=== PATIENT | male | born 1970 | race Caucasian/White ===

== ENCOUNTER 2023-01-09 09:22 | Inpatient (IN) ==
[2023-01-09] MEDS ORDERED: SODIUM CHLORIDE 0.9% 1000ML 1,000 ML IV SCH (09:30)
[2023-01-09] MEDS ORDERED: LACTATED RINGER'S 1,000 ML IV ONE (09:33)
--- NOTE | 2023-01-09 09:46 | Emergency Department Note ---
Impression & Plan DKA, type 2, Gastroenteritis, Dehydration ED Provider Note Provider: Joe Nathan MD DATE OF SERVICE: 01/09/2023 CHIEF COMPLAINT: Nausea vomiting, dehydrated HISTORY OF PRESENT ILLNESS: Patient is a 52-year-old gentleman history of hypertension and type 2 diabetes presenting here via ambulance from his home. Patient is sleepy female evening according to his . Had GI symptom s with nausea and vomiting then. Thursday evidently had several syncopal episodes and was not keeping much down. Seen at [facility] had x-rays as well as some blood work done. Discharged home after IV fluids and some Zofran. Zofran was not helpful. Patient not taking his medications the last day or so. Up all night vomiting. Denies diarrhea. Denies significant Paresh pain. Feels very thirsty by his report. reports when he did syncopized the other day did bump his head and small healing scab on his mid forehead. Patient is on aspirin. Patient without significant injury or pain in the extremities by his report. Feels short of breath. EMS gave him 400 mL of normal saline as well as 4 mg of Zofran prior to arrival. states the patient seems confused this morning and was not making sense. PAST MEDICAL HISTORY: As noted above MEDICATIONS: Reviewed home medications although last day or so has not been taking SOCIAL HISTORY: lives at home, works in parts PHYSICAL EXAM: GENERAL: alert to verbal stimuli resting with eyes closed somewhat tachypnea, answers simple questions without issues but fatigued in appearance Head: normocephalic with a small less than centimeter healing abrasion eyebrow as well as across the nasal bridge without significant crepitus EYES: No injection, discharge or icterus. PERRL NECK: Trachea midline. Supple without significant tenderness ENT: Mucous membranes pink and however quite dry mucous membranes. Nasal bridge with slight abrasion. LUNGS: Airway patent. No retractions. Breath sounds clear but tachypneic HEART: Regular tachycardic rate and rhythm. No chest wall tenderness ABDOMEN: Soft and non-tender, without guarding or rebound. SKIN: Acyanotic, warm, dry, without rashes EXTREMITIES: Without swelling, tenderness or deformity but some decreased capillary refill initially. NEUROLOGICAL: No focal deficits moving extremities. No slurred speech. No facial droop. Not the best historian and fatigued in nature. EK bpm sinus tachycardia. No PVC or PAC. No acute ST segment elevation or depression with a QTc of 494. CONTINUOUS CARDIAC MONITORING: was ordered and showed a heart rate of 100s-110s bpm in sinus tachycardia Patient's laboratory studies and imaging reviewed. Differential includes Infection, dehydration, metabolic abnormality, hypo/hyperglycemia, electrolyte disturbance, anemia, cardiac sources, neurologic, pneumonia, traumatic injury, as well as other pathologies. IMPRESSION/MEDICAL DECISION MAKING: Patient quite fatigued. Tachypneic with elevated blood sugar today in the 400s and not taking his blood sugars recently. Has been on Jardiance. Reviewed the [facility] medical records from [place] from the other day as well as prior PCP note. Blood work there showed evidence of anion gap but a normal creatinine of 0.8. Urine did show some ketones as well as a lot of glucose. No white count at that time. Normal high-sensitivity troponin from the fifth. If he possibly been in euglycemic DKA at that point. Given the fact that it is head then without imaging did complete a CT now given his confusion. With the elevated blood sugars now off of his medicines in particular his Jardiance with the tachypnea question if he is now transition to a more classic DKA state. Given IV fluid resuscitation 3 L. Benign abdomen without significant abdominal ten derness. No significant chest wall tenderness. [id number] BMP shows evidence of elevated potassium of 6.4 with a bicarb of 6, glucose of 428, creatinine 1.1, BUN of 52, and anion gap of 27. CBC returns with leukocytosis I believe more likely reactive PCO2 18 given the gastroenteritis and truly bacterial. VBG with a undetectably with a pH below 7. CT of the head without acute abnormality per radiology. Patient interactive and talking but at times a bit confused. Again fairly benign abdomen and low suspicion for acute intra-abdominal pathology. Doubt a significant bacterial infectious component. Discussed with the hospitalist team for further care at the hospital given his severe DKA. DIAGNOSIS: DKA, gastroenteritis, dehydration, hyperkalemia, confusion DISPOSITION: Hospitalist will evaluate. updated at bedside. Critical Care I have personally spent 36 minutes of critical care time in the direct management of this patient. This includes bedside care, interpretation of diagnostic studies, and testing, discussion with consultants, patient, and family members, and other required patient management activities. These 36 minutes is in excess of all separately billable procedures. Past Med/Surg History Medical History (Updated 01/09/23 @ 12:36 by Joy Hughes PA-C) DM II (diabetes mellitus, type II), controlled HLD (hyperlipidemia) HTN (hypertension) Hypothyroidism Surgical History History of tonsillectomy Family History Other Alzheimer disease Dementia Hypertension Social History Smoking Status: Never smoker Hx Alcohol Use: Yes Alcohol Intake Frequency: 2-4 x/Month Hx Substance Use: No Preferred Language: Sinhala Communication Ability: Effective Jde Developer Required: No Beliefs That Will Affect Care: None Current Living Situation: Spouse Other Information That Helps Us Care for You: No Feels Safe at Home: Yes Safety Concerns: Feels Safe At This Time Assistive Devices: None Allergies Allergies Allergy/AdvReac Type Severity Reaction Status Date / Time bee venom protein (honey bee) Allergy Unknown Bee sting Verified 01/09/23 10:36 allergy Home Meds Home Medications Medication Instructions Recorded Confirmed aspirin 81 mg capsule 81 mg PO DAILY 01/09/23 01/09/23 atenolol 50 mg tablet 50 mg PO DAILY 01/09/23 01/09/23 bismuth [id number] 1 supp MS BID 01/09/23 01/09/23 rectal suppository empagliflozin 25 mg tablet 25 mg PO DAILY 01/09/23 01/09/23 (Jardiance) insulin glargine 100 unit/mL (3 32 unit subcut QAM 01/09/23 01/09/23 mL) subcutaneous pen (Lantus Solostar U-100 Insulin) levothyroxine 125 mcg tablet 125 mcg PO DAILY 01/09/23 01/09/23 losartan 50 mg tablet 50 mg PO DAILY 01/09/23 01/09/23 metformin 1,000 mg tablet 1,000 mg PO BID 01/09/23 01/09/23 ondansetron HCl 4 mg tablet 4 mg PO Q6H PRN Nausea 01/09/23 01/09/23 semaglutide 2 mg/dose (8 mg/3 mL) 2 mg subcut WK 01/09/23 01/09/23 subcutaneous pen injector (Ozempic) simvastatin 40 mg tablet 40 mg PO HS 01/09/23 01/09/23 Results & Data (ED) Vital Signs Vital Signs - 24 hr 01/09/23 09:40 01/09/23 09:38 01/09/23 09:11 Temperature 36.2 C L Temperature Source Oral Pulse Rate 115 H 121 H Pulse Rate [Finger] Respiratory Rate 30 H Respiratory Effort / Characteristics Labored Respiratory Depth Retractive Respiratory Pattern Blood Pressure 127/83 Blood Pressure [Right Arm] Blood Pressure Mean 97 Blood Pressure Mean [Right Arm] Pulse Oximetry 100 100 Oxygen Delivery Method Room Air Room Air Sepsis Recent Fever Within 48 Hours No Sepsis New/Unexplained Change in Mental Status N/A Sepsis Action Taken by Nursing Physician Notified 01/09/23 10:15 01/09/23 11:17 Temperature Temperature Source Pulse Rate Pulse Rate [Finger] 121 H 124 H Respiratory Rate 18 24 Respiratory Effort / Characteristics Non-Labored Respiratory Depth Normal Respiratory Pattern Tachypnea Blood Pressure Blood Pressure [Right Arm] 136/76 121/69 Blood Pressure Mean Blood Pressure Mean [Right Arm] 96 86 Pulse Oximetry 100 100 Oxygen Delivery Method Room Air Room Air Sepsis Recent Fever Within 48 Hours Sepsis New/Unexplained Change in Mental Status Sepsis Action Taken by Nursing Laboratory Data 01/09/23 09:45 01/09/23 09:45 Lab Results 01/09/23 01/09/23 01/09/23 Range/Units 09:30 09:45 09:45 WBC 17.47 H (4.8-10.8) K/ul RBC 5.94 (4.70-6.10) M/uL Hgb 16.3 (14.0-18.0) g/dl POC Hgb (14.0-18.0) g/dl Hct 52.4 H (42.0-52.0) % POC Hct (42-52) % MCV 88.2 (80.0-100.0) fL MCH 27.4 (25.0-34.0) pg MCHC 31.1 L (32.0-36.0) g/dL RDW Std Deviation 40.7 (36.4-46.3) fL RDW Coeff of Tae 12.5 (11.5-14.5) % Plt Count 379 (130-400) K/uL MPV 10.4 (9.4-12.4) fL Immature Gran % (Auto) 0.9 % Neut % (Auto) 88.4 % Lymph % (Auto) 3.5 % [place] % (Auto) 6.9 % Eos % (Auto) 0.0 % Baso % (Auto) 0.3 % Neut # (Auto) 15.44 H (1.40-6.50) K/uL Lymph # (Auto) 0.61 L (1.2-3.4) K/uL [place] # (Auto) 1.20 H (0.11-0.59) K/uL Eos # (Auto) 0.00 (0-0.50) K/uL Baso # (Auto) 0.06 (0-0.2) K/uL Immature Gran # (Auto) 0.16 (0.01-0.20) K/uL ABG pH (7.35-7.45) VBG pH (7.36-7.41) VBG pCO2 (38-50) mmHg VBG pO2 mmHg VBG HCO3 mmol/L VBG O2 Saturation % VBG Base Excess mEq/L POC Sodium (135-144) mmol/L Sodium (136-145) mmol/L POC Potassium (3.3-5.0) mmol/L Potassium (3.5-5.1) mmol/L POC Chloride (101-112) mmol/L Chloride (98-107) mmol/L Carbon Dioxide (21-32) mmol/L POC Total CO2 (24-31) mmol/L Anion Gap (3-11) POC Anion Gap (16-25) mmol/L POC BUN (7-18) mg/dl BUN (6-23) mg/dl Creatinine (0.6-1.4) mg/dl POC Creatinine (0.6-1.3) mg/dl Est Cr Clr Drug Dosing ml/min Est GFR ( Amer) ml/min Est GFR (Non-Af Amer) ml/min BUN/Creatinine Ratio (10-20) Glucose (70-99(Fasting)) mg/dl POC Glucose (70-99) mg/dl POC Glucose (other) (70-99) mg/dl Estimat Average Glucose mg/dl Hemoglobin A1c (4.5-5.6) % Lactate 4.0 H* (0.4-2.0) mmol/L Calcium (8.6-10.3) mg/dl POC Ioniz Calcium Ting (1.12-1.32) mmol/l Magnesium (1.7-2.4) mg/dl Total Bilirubin (0.2-1.0) mg/dl AST (13-39) U/L ALT (7-52) U/L Alkaline Phosphatase (34-104) U/L Troponin I High Sens (0-20) pg/ml Total Protein (6.0-8.3) gm/dl Albumin (3.4-5.0) gm/dl Globulin (2.5-4.0) gm/dl Albumin/Globulin Ratio (0.9-2) Procalcitonin (0-0.5) ng/ml TSH (0.300-4.500) uIu/ml Free T4 (0.61-1.60) ng/dl Urine Color Urine Appearance (Clear) Urine pH (4.5-7.5) Ur Specific [place] (1.000-1.030) Urine Protein (Negative) Urine Glucose (UA) (Negative) Urine Ketones (Negative) Urine Blood (Negative) Urine Nitrite (Negative) Urine Bilirubin (Negative) Urine Urobilinogen (Negative) Ur Leukocyte Esterase (Negative) Urine WBC (Auto) (0-5) /hpf Urine RBC (Auto) (0-4) /hpf U Hyaline Cast (Auto) (0-5) /lpf U Epithel Cells (Auto) (0-5) /lpf Urine Bacteria (Auto) (Negative) SARS-CoV-2, RNA, NAAT NEGATIVE (NEGATIVE) 01/09/23 01/09/23 01/09/23 Range/Units 09:45 09:45 09:52 WBC (4.8-10.8) K/ul RBC (4.70-6.10) M/uL Hgb (14.0-18.0) g/dl POC Hgb 17.7 (14.0-18.0) g/dl Hct (42.0-52.0) % POC Hct 52 (42-52) % MCV (80.0-100.0) fL MCH (25.0-34.0) pg MCHC (32.0-36.0) g/dL RDW Std Deviation (36.4-46.3) fL RDW Coeff of Tae (11.5-14.5) % Plt Count (130-400) K/uL MPV (9.4-12.4) fL Immature Gran % (Auto) % Neut % (Auto) % Lymph % (Auto) % [place] % (Auto) % Eos % (Auto) % Baso % (Auto) % Neut # (Auto) (1.40-6.50) K/uL Lymph # (Auto) (1.2-3.4) K/uL [place] # (Auto) (0.11-0.59) K/uL Eos # (Auto) (0-0.50) K/uL Baso # (Auto) (0-0.2) K/uL Immature Gran # (Auto) (0.01-0.20) K/uL ABG pH (7.35-7.45) VBG pH (7.36-7.41) VBG pCO2 (38-50) mmHg VBG pO2 mmHg VBG HCO3 mmol/L VBG O2 Saturation % VBG Base Excess mEq/L POC Sodium 136 (135-144) mmol/L Sodium (136-145) mmol/L POC Potassium 6.4 H* (3.3-5.0) mmol/L Potassium (3.5-5.1) mmol/L POC Chloride 110 (101-112) mmol/L Chloride (98-107) mmol/L Carbon Dioxide (21-32) mmol/L POC Total CO2 6 L* (24-31) mmol/L Anion Gap (3-11) POC Anion Gap 27.0 H (16-25) mmol/L POC BUN 52 H (7-18) mg/dl BUN (6-23) mg/dl Creatinine (0.6-1.4) mg/dl POC Creatinine 1.1 (0.6-1.3) mg/dl Est Cr Clr Drug Dosing ml/min Est GFR ( Amer) ml/min Est GFR (Non-Af Amer) ml/min BUN/Creatinine Ratio (10-20) Glucose (70-99(Fasting)) mg/dl POC Glucose (70-99) mg/dl POC Glucose (other) 428 H* (70-99) mg/dl Estimat Average Glucose 180 mg/dl Hemoglobin A1c 7.9 H (4.5-5.6) % Lactate (0.4-2.0) mmol/L Calcium (8.6-10.3) mg/dl POC Ioniz Calcium Ting 1.22 (1.12-1.32) mmol/l Magnesium (1.7-2.4) mg/dl Total Bilirubin (0.2-1.0) mg/dl AST (13-39) U/L ALT (7-52) U/L Alkaline Phosphatase (34-104) U/L Troponin I High Sens (0-20) pg/ml Total Protein (6.0-8.3) gm/dl Albumin (3.4-5.0) gm/dl Globulin (2.5-4.0) gm/dl Albumin/Globulin Ratio (0.9-2) Procalcitonin (0-0.5) ng/ml TSH 0.157 L (0.300-4.500) uIu/ml Free T4 1.14 (0.61-1.60) ng/dl Urine Color Urine Appearance (Clear) Urine pH (4.5-7.5) Ur Specific [place] (1.000-1.030) Urine Protein (Negative) Urine Glucose (UA) (Negative) Urine Ketones (Negative) Urine Blood (Negative) Urine Nitrite (Negative) Urine Bilirubin (Negative) Urine Urobilinogen (Negative) Ur Leukocyte Esterase (Negative) Urine WBC (Auto) (0-5) /hpf Urine RBC (Auto) (0-4) /hpf U Hyaline Cast (Auto) (0-5) /lpf U Epithel Cells (Auto) (0-5) /lpf Urine Bacteria (Auto) (Negative) SARS-CoV-2, RNA, NAAT (NEGATIVE) 01/09/23 01/09/23 01/09/23 Range/Units 09:59 10:00 11:29 WBC (4.8-10.8) K/ul RBC (4.70-6.10) M/uL Hgb (14.0-18.0) g/dl POC Hgb (14.0-18.0) g/dl Hct (42.0-52.0) % POC Hct (42-52) % MCV (80.0-100.0) fL MCH (25.0-34.0) pg MCHC (32.0-36.0) g/dL RDW Std Deviation (36.4-46.3) fL RDW Coeff of Tae (11.5-14.5) % Plt Count (130-400) K/uL MPV (9.4-12.4) fL Immature Gran % (Auto) % Neut % (Auto) % Lymph % (Auto) % [place] % (Auto) % Eos % (Auto) % Baso % (Auto) % Neut # (Auto) (1.40-6.50) K/uL Lymph # (Auto) (1.2-3.4) K/uL [place] # (Auto) (0.11-0.59) K/uL Eos # (Auto) (0-0.50) K/uL Baso # (Auto) (0-0.2) K/uL Immature Gran # (Auto) (0.01-0.20) K/uL ABG pH < 7.00 L* (7.35-7.45) VBG pH < 7.00 L (7.36-7.41) VBG pCO2 18 L (38-50) mmHg VBG pO2 47 mmHg VBG HCO3 3 mmol/L VBG O2 Saturation 76.8 % VBG Base Excess -28.5 mEq/L POC Sodium (135-144) mmol/L Sodium 137 (136-145) mmol/L POC Potassium (3.3-5.0) mmol/L Potassium 6.1 H* (3.5-5.1) mmol/L POC Chloride (101-112) mmol/L Chloride 103 (98-107) mmol/L Carbon Dioxide 3 L* (21-32) mmol/L POC Total CO2 (24-31) mmol/L Anion Gap 31 H (3-11) POC Anion Gap (16-25) mmol/L POC BUN (7-18) mg/dl BUN 39 H (6-23) mg/dl Creatinine 1.45 H (0.6-1.4) mg/dl POC Creatinine (0.6-1.3) mg/dl Est Cr Clr Drug Dosing 58.2 ml/min Est GFR ( Amer) 62.8 ml/min Est GFR (Non-Af Amer) 54.2 ml/min BUN/Creatinine Ratio 26.9 H (10-20) Glucose 431 H* (70-99(Fasting)) mg/dl POC Glucose (70-99) mg/dl POC Glucose (other) (70-99) mg/dl Estimat Average Glucose mg/dl Hemoglobin A1c (4.5-5.6) % Lactate (0.4-2.0) mmol/L Calcium 8.9 (8.6-10.3) mg/dl POC Ioniz Calcium Ting (1.12-1.32) mmol/l Magnesium 2.8 H (1.7-2.4) mg/dl Total Bilirubin 0.6 (0.2-1.0) mg/dl AST 17 (13-39) U/L ALT 16 (7-52) U/L Alkaline Phosphatase 60 (34-104) U/L Troponin I High Sens 13.4 (0-20) pg/ml Total Protein 7.3 (6.0-8.3) gm/dl Albumin 4.5 (3.4-5.0) gm/dl Globulin 2.8 (2.5-4.0) gm/dl Albumin/Globulin Ratio 1.6 (0.9-2) Procalcitonin (0-0.5) ng/ml TSH (0.300-4.500) uIu/ml Free T4 (0.61-1.60) ng/dl Urine Color Urine Appearance (Clear) Urine pH (4.5-7.5) Ur Specific [place] (1.000-1.030) Urine Protein (Negative) Urine Glucose (UA) (Negative) Urine Ketones (Negative) Urine Blood (Negative) Urine Nitrite (Negative) Urine Bilirubin (Negative) Urine Urobilinogen (Negative) Ur Leukocyte Esterase (Negative) Urine WBC (Auto) (0-5) /hpf Urine RBC (Auto) (0-4) /hpf U Hyaline Cast (Auto) (0-5) /lpf U Epithel Cells (Auto) (0-5) /lpf Urine Bacteria (Auto) (Negative) SARS-CoV-2, RNA, NAAT (NEGATIVE) 01/09/23 01/09/23 01/09/23 Range/Units 11:43 11:54 11:54 WBC (4.8-10.8) K/ul RBC (4.70-6.10) M/uL Hgb (14.0-18.0) g/dl POC Hgb (14.0-18.0) g/dl Hct (42.0-52.0) % POC Hct (42-52) % MCV (80.0-100.0) fL MCH (25.0-34.0) pg MCHC (32.0-36.0) g/dL RDW Std Deviation (36.4-46.3) fL RDW Coeff of Tae (11.5-14.5) % Plt Count (130-400) K/uL MPV (9.4-12.4) fL Immature Gran % (Auto) % Neut % (Auto) % Lymph % (Auto) % [place] % (Auto) % Eos % (Auto) % Baso % (Auto) % Neut # (Auto) (1.40-6.50) K/uL Lymph # (Auto) (1.2-3.4) K/uL [place] # (Auto) (0.11-0.59) K/uL Eos # (Auto) (0-0.50) K/uL Baso # (Auto) (0-0.2) K/uL Immature Gran # (Auto) (0.01-0.20) K/uL ABG pH (7.35-7.45) VBG pH (7.36-7.41) VBG pCO2 (38-50) mmHg VBG pO2 mmHg VBG HCO3 mmol/L VBG O2 Saturation % VBG Base Excess mEq/L POC Sodium (135-144) mmol/L Sodium (136-145) mmol/L POC Potassium (3.3-5.0) mmol/L Potassium (3.5-5.1) mmol/L POC Chloride (101-112) mmol/L Chloride (98-107) mmol/L Carbon Dioxide (21-32) mmol/L POC Total CO2 (24-31) mmol/L Anion Gap (3-11) POC Anion Gap (16-25) mmol/L POC BUN (7-18) mg/dl BUN (6-23) mg/dl Creatinine (0.6-1.4) mg/dl POC Creatinine (0.6-1.3) mg/dl Est Cr Clr Drug Dosing ml/min Est GFR ( Amer) ml/min Est GFR (Non-Af Amer) ml/min BUN/Creatinine Ratio (10-20) Glucose (70-99(Fasting)) mg/dl POC Glucose 310 H* (70-99) mg/dl POC Glucose (other) (70-99) mg/dl Estimat Average Glucose mg/dl Hemoglobin A1c (4.5-5.6) % Lactate 2.8 H* (0.4-2.0) mmol/L Calcium (8.6-10.3) mg/dl POC Ioniz Calcium Ting (1.12-1.32) mmol/l Magnesium (1.7-2.4) mg/dl Total Bilirubin (0.2-1.0) mg/dl AST (13-39) U/L ALT (7-52) U/L Alkaline Phosphatase (34-104) U/L Troponin I High Sens (0-20) pg/ml Total Protein (6.0-8.3) gm/dl Albumin (3.4-5.0) gm/dl Globulin (2.5-4.0) gm/dl Albumin/Globulin Ratio (0.9-2) Procalcitonin 0.45 (0-0.5) ng/ml TSH (0.300-4.500) uIu/ml Free T4 (0.61-1.60) ng/dl Urine Color Urine Appearance (Clear) Urine pH (4.5-7.5) Ur Specific [place] (1.000-1.030) Urine Protein (Negative) Urine Glucose (UA) (Negative) Urine Ketones (Negative) Urine Blood (Negative) Urine Nitrite (Negative) Urine Bilirubin (Negative) Urine Urobilinogen (Negative) Ur Leukocyte Esterase (Negative) Urine WBC (Auto) (0-5) /hpf Urine RBC (Auto) (0-4) /hpf U Hyaline Cast (Auto) (0-5) /lpf U Epithel Cells (Auto) (0-5) /lpf Urine Bacteria (Auto) (Negative) SARS-CoV-2, RNA, NAAT (NEGATIVE) 01/09/23 Range/Units 12:03 WBC (4.8-10.8) K/ul RBC (4.70-6.10) M/uL Hgb (14.0-18.0) g/dl POC Hgb (14.0-18.0) g/dl Hct (42.0-52.0) % POC Hct (42-52) % MCV (80.0-100.0) fL MCH (25.0-34.0) pg MCHC (32.0-36.0) g/dL RDW Std Deviation (36.4-46.3) fL RDW Coeff of Tae (11.5-14.5) % Plt Count (130-400) K/uL MPV (9.4-12.4) fL Immature Gran % (Auto) % Neut % (Auto) % Lymph % (Auto) % [place] % (Auto) % Eos % (Auto) % Baso % (Auto) % Neut # (Auto) (1.40-6.50) K/uL Lymph # (Auto) (1.2-3.4) K/uL [place] # (Auto) (0.11-0.59) K/uL Eos # (Auto) (0-0.50) K/uL Baso # (Auto) (0-0.2) K/uL Immature Gran # (Auto) (0.01-0.20) K/uL ABG pH (7.35-7.45) VBG pH (7.36-7.41) VBG pCO2 (38-50) mmHg VBG pO2 mmHg VBG HCO3 mmol/L VBG O2 Saturation % VBG Base Excess mEq/L POC Sodium (135-144) mmol/L Sodium (136-145) mmol/L POC Potassium (3.3-5.0) mmol/L Potassium (3.5-5.1) mmol/L POC Chloride (101-112) mmol/L Chloride (98-107) mmol/L Carbon Dioxide (21-32) mmol/L POC Total CO2 (24-31) mmol/L Anion Gap (3-11) POC Anion Gap (16-25) mmol/L POC BUN (7-18) mg/dl BUN (6-23) mg/dl Creatinine (0.6-1.4) mg/dl POC Creatinine (0.6-1.3) mg/dl Est Cr Clr Drug Dosing ml/min Est GFR ( Amer) ml/min Est GFR (Non-Af Amer) ml/min BUN/Creatinine Ratio (10-20) Glucose (70-99(Fasting)) mg/dl POC Glucose (70-99) mg/dl POC Glucose (other) (70-99) mg/dl Estimat Average Glucose mg/dl Hemoglobin A1c (4.5-5.6) % Lactate (0.4-2.0) mmol/L Calcium (8.6-10.3) mg/dl POC Ioniz Calcium Ting (1.12-1.32) mmol/l Magnesium (1.7-2.4) mg/dl Total Bilirubin (0.2-1.0) mg/dl AST (13-39) U/L ALT (7-52) U/L Alkaline Phosphatase (34-104) U/L Troponin I High Sens (0-20) pg/ml Total Protein (6.0-8.3) gm/dl Albumin (3.4-5.0) gm/dl Globulin (2.5-4.0) gm/dl Albumin/Globulin Ratio (0.9-2) Procalcitonin (0-0.5) ng/ml TSH (0.300-4.500) uIu/ml Free T4 (0.61-1.60) ng/dl Urine Color Yellow Urine Appearance Clear (Clear) Urine pH 5.0 (4.5-7.5) Ur Specific [place] 1.022 (1.000-1.030) Urine Protein 1+ H (Negative) Urine Glucose (UA) 3+ H (Negative) Urine Ketones 4+ H (Negative) Urine Blood 1+ H (Negative) Urine Nitrite Negative (Negative) Urine Bilirubin Negative (Negative) Urine Urobilinogen Negative (Negative) Ur Leukocyte Esterase Negative (Negative) Urine WBC (Auto) 1-5 (0-5) /hpf Urine RBC (Auto) 0-4 (0-4) /hpf U Hyaline Cast (Auto) 1-5 (0-5) /lpf U Epithel Cells (Auto) 5-10 H (0-5) /lpf Urine Bacteria (Auto) Negative (Negative) SARS-CoV-2, RNA, NAAT (NEGATIVE) Administered Medications Insulin Human Regular 250 (units/ Sodium Chloride) 250 mls @ 7.1 mls/hr IV .Q24H [facility]; Protocol Stop: 02/08/23 10:14 Last Admin: 01/09/23 10:43 Dose: 7.1 units/hr, 7.1 mls/hr Documented By: BRAD Co-signed By: ANY Sodium Chloride (1/2 Nss) 1,000 mls @ 250 mls/hr IV .Q4H NIYA Stop: 02/08/23 13:29 Last Admin: 01/09/23 13:58 Dose: Not Given Documented By: FRANCISCO JAVIER Sodium Chloride (Nss 1000ml) 2,000 mls @ 999 mls/hr IV .Q2H1M ONE Stop: 01/09/23 15:49 Last Admin: 01/09/23 14:07 Dose: 999 mls/hr Documented By: GABO Insulin Aspart (Insulin Aspart Per Unit Charge) 0 units SC ACHS NIYA Stop: 02/08/23 11:29 Last Admin: 01/09/23 12:17 Dose: Not Given Documented By: MODESTO Miscellaneous (Pending D5 1/2ns+20meq Kcl Ivf) 1 each N/A Q2H NIYA Stop: 02/08/23 12:14 Last Admin: 01/09/23 13:58 Dose: Not Given Documented By: FRANCISCO JAVIER Miscellaneous (Pending 1/2nss+20meq Kcl Ivf) 1 each N/A Q2H NIYA Stop: 02/08/23 12:14 Last Admin: 01/09/23 13:58 Dose: Not Given Documented By: FRANCISCO JAVIER Discontinued Medications Sodium Chloride (Nss 1000ml) 1,000 mls @ 999 mls/hr IV .Q1H1M NIYA Stop: 01/09/23 10:30 Last Infusion: 01/09/23 10:51 Dose: 0 mls/hr Documented By: Admin: 01/09/23 09:48 Dose: 999 mls/hr Documented By: BRAD Lactated Ringer's (Lr) 1,000 mls @ 999 mls/hr IV .Q1H1M ONE Stop: 01/09/23 10:33 Last Infusion: 01/09/23 10:51 Dose: 0 mls/hr Documented By: Admin: 01/09/23 09:48 Dose: 999 mls/hr Documented By: BRAD Sodium Chloride (Nss 1000ml) 1,000 mls @ 999 mls/hr IV .Q1H1M ONE Stop: 01/09/23 11:07 Last Infusion: 01/09/23 11:48 Dose: 0 mls/hr Documented By: Admin: 01/09/23 10:47 Dose: 999 mls/hr Documented By: BRAD Ceftriaxone Sodium 1,000 mg/ (Dextrose) 50 mls @ 100 mls/hr IV NOW STA; Protocol Stop: 01/09/23 12:13 Last Infusion: 01/09/23 12:29 Dose: 0 mls/hr Documented By: Admin: 01/09/23 11:58 Dose: 100 mls/hr Documented By: MODESTO Vancomycin HCl 1,500 mg/ (Sodium Chloride) 530 mls @ 200 mls/hr IV NOW ONE; Protocol Stop: 01/09/23 14:38 Last Admin: 01/09/23 12:32 Dose: 200 mls/hr Documented By: MODESTO Parenteral Electrolytes (Plasma-Lyte A Ph 7.4) 1,000 mls @ 150 mls/hr IV .Q6H40M NIYA Stop: 02/08/23 12:14 Last Admin: 01/09/23 12:56 Dose: Not Given Documented By: MODESTO Imaging Data Radiologist's Impression: Chest X-Ray 01/09/23 09:26 XR chest 1V portable CLINICAL HISTORY: Weakness. COMPARISON STUDY: No previous studies for comparison. FINDINGS: Lung volumes are normal. There is no consolidation to suggest pn eumonia. There is a possible 1.1 cm right lower lung nodule. There is no pneumothorax or pleural effusion. Cardiac size is normal. Mediastinal contours are normal. There is no evidence for pulmonary edema. IMPRESSION: 1. No acute cardiopulmonary findings. 2. Possible 1.1 cm right lower lung nodule. Nonemergent chest CT is recommended. ACT 112: Positive. There are findings on this exam that require communication between the performing entity and the patient following Patient Test Result Information Act ([place] Act 112) guidelines. Electronically signed by: Ariel Carrington M.D. 01/09/2023 10:[address] 01/09/23 09:[address] DOSE: 537.48 mGy.cm HISTORY: fall, n/v TECHNIQUE: Multiaxial CT images of the head were performed without the use of intravenous contrast. Automated exposure control was utilized for this study. A dose lowering technique was utilized adhering to the principles of ALARA. Comparison: None. Findings: The paranasal sinuses and mastoid air cells are clear. The calvarium and skull base are intact. The ventricles and sulci are within normal limits. There is no mass, hematoma, midline shift, or acute infarct. Small metallic screw/implant within the left posterior frontal bone. Impression: No acute intracranial abnormality. ACT 112: Negative or not required by law. Electronically signed by: Johnny Powell M.D. 01/09/2023 10:44 AM Discharge Plan Visit Data Chief Complaint: Hyperglycemia ED Provider: Joe Nathan Discharge Problem: DKA, type 2, Gastroenteritis, Dehydration Patient Disposition: Admitted As Inpatient Discharge Instructions Interventions: ED Discharge Assessment Last Done: 01/09/23 13:21 DKA, type 2 Qualifiers: Diabetes mellitus complication detail: without coma Qualified Code(s): E11.10 - Type 2 diabetes mellitus with ketoacidosis without coma
[2023-01-09 10:05] LABS: iSTAT Creatinine 1.1 mg/dl (0.6-1.3); iSTAT Hemoglobin 17.7 g/dl (14.0-18.0); iSTAT Ionized Calcium 1.22 mmol/l (1.12-1.32); iSTAT Potassium 6.4 mmol/L (3.3-5.0)
[2023-01-09] MEDS ORDERED: CARBOHYDRATES FOR HYPOGLYCEMIA PO PRN (10:05)
[2023-01-09] MEDS ORDERED: GLUCAGON FOR INJ 1 MG VIAL SQ PRN (10:05)
[2023-01-09] MEDS ORDERED: GLUCOSE 10 TAB/TUBE PO PRN (10:05)
[2023-01-09] MEDS ORDERED: DEXTROSE 50% 50 ML SYRINGE IV PRN (10:05)
[2023-01-09] MEDS ORDERED: DKA GOAL RANGE 150-250 mg/dl ONE ×2 (10:05→12:11)
[2023-01-09] MEDS ORDERED: GLUCOSE 40% GEL 15 GM TUBE PO PRN (10:05)
[2023-01-09] MEDS ORDERED: SODIUM CHLORIDE 0.9% 1000ML 1,000 ML IV ONE (10:07)
[2023-01-09] MEDS ORDERED: INSULIN REGULAR 250 UNITS in SODIUM CHLORIDE 0.9% 247.5 ML IV SCH ×2 (10:15→12:15)
--- NOTE | 2023-01-09 10:16 | XRay Report ---
XR chest 1V portable CLINICAL HISTORY: Weakness. COMPARISON STUDY: No previous studies for comparison. FINDINGS: Lung volumes are normal. There is no consolidation to suggest pneumonia. There is a possibl e 1.1 cm right lower lung nodule. There is no pneumothorax or pleural effusion. Cardiac size is sahra l. Mediastinal contours are normal. There is no evidence for pulmonary edema. IMPRESSION: 1. No acute cardiopulmonary findings. 2. Possible 1.1 cm right lower lung nodule. Nonemergent chest CT is recommended. ACT 112: Positive. There are findings on this exam that require communication between the performing entity and the patient following Patient Test Result Information Act ([place] Act 112) guidelines. Electronically signed by: Ariel Carrington M.D. 01/09/2023 10:14 AM
[2023-01-09 10:24] LABS: Basophils # (auto) 0.06 K/uL (0-0.2); Basophils % (auto) 0.3 %; Hematocrit (blood only) 52.4 % (42.0-52.0); Hemoglobin 16.3 g/dl (14.0-18.0); Immature Granulocytes # (auto) 0.16 K/uL (0.01-0.20); Immature Granulocytes % (auto) 0.9 %; Lymphocytes # (auto) 0.61 K/uL (1.2-3.4); Lymphocytes % (auto) 3.5 %; Mean Corpuscular Hemoglobin 27.4 pg (25.0-34.0); Mean Corpuscular Hgb Conc 31.1 g/dL (32.0-36.0); Mean Corpuscular Volume 88.2 fL (80.0-100.0); Mean Platelet Volume 10.4 fL (9.4-12.4); Monocytes % (auto) 6.9 %; Neutrophils # (auto) 15.44 K/uL (1.40-6.50); Neutrophils % (auto) 88.4 %; Platelet Count 379 K/uL (130-400); RDW Coefficient of Variation 12.5 % (11.5-14.5); RDW Standard Deviation 40.7 fL (36.4-46.3); Red Blood Count 5.94 M/uL (4.70-6.10); White Blood Count 17.47 K/ul (4.8-10.8)
[2023-01-09 10:28] LABS: Base Excess VBG -28.5 mEq/L; HCO3 VBG 3 mmol/L; Oxygen Saturation VBG 76.8 %; PCO2 VBG 18 mmHg (38-50); PO2 VBG 47 mmHg; pH VBG < 7.00 (7.36-7.41)
[2023-01-09 10:39] LABS: Thyroid Stimulating Hormone 0.157 uIu/ml (0.300-4.500)
--- NOTE | 2023-01-09 10:45 | CT Scan Report ---
HEAD CT NONCONTRAST CT DOSE: 537.48 mGy.cm HISTORY: fall, n/v TECHNIQUE: Multiaxial CT images of the head were performed without the use of intravenous contrast. A utomated exposure control was utilized for this study. A dose lowering technique was utilized adheri ng to the principles of ALARA. Comparison: None. Findings: The paranasal sinuses and mastoid air cells are clear. The calvarium and skull base are int act. The ventricles and sulci are within normal limits. There is no mass, hematoma, midline shift, or acute infarct. Small metallic screw/implant within the left posterior frontal bone. Impression: No acute intracranial abnormality. ACT 112: Negative or not required by law. Electronically signed by: Johnny Powell M.D. 01/09/2023 10:44 AM
--- NOTE | 2023-01-09 11:08 | History & Physical Report ---
Date of Service January 09, 2023 Assessment & Plan (1) DKA, type 2: (2) Metabolic acidosis: (3) Intractable nausea and vomiting: (4) SIRS (systemic inflammatory response syndrome): (5) HTN (hypertension): (6) Hypothyroidism: (7) HLD (hyperlipidemia): Plan This is a 52yo M with a PMH of DM II, hypothyroidism, HTN and other medical problems listed below who presents with nausea, vomiting and syncopal episodes at home over the past 3 days and was found to have DKA and metabolic acidosis. DKA Metabolic acidosis N/V x 3 days, has not taken insulin since Thursday since feeling poorly. Educated on importance of continuing insulin (at reduced amt, call PCP) even when PO intake is decreased Confusion noted by starting yesterday but patient still alert on exam, answering questions appropriately ABG pH <7.00, bicarb 3 on BMP, anion gap 31, glucose 431 Received 3 L fluid bolus in ED, transitioning to 1/2 NSS @ 250 ml/hr given that initial sodium corrects to 142 BMP, VBG pH, lytes Q4H, transitional fluids ordered per DKA protocol Patient to be managed in ICU for now given severe metabolic acidosis. Case discussed with Dr. Aguillon SIRS criteria HR 120s, RR: 30, WBC 17, lactate 4 -> 2.8 improving with fluids, procal pending No clear infectious source, likely reactive in setting of DKA but blood cultures obtained, given empiric dose of Rocephin and Vanco given recent ED visit DEMOND Cr 1.45 today in setting of DKA, dehydration. Baseline Cr per Epic ~ 0.8. Avoid nephrotoxic agents when able, continue IV hydration Hypertension Continue atenolol with hold parameters Hypothyroidism Continue levothyroxine Hyperlipidemia Continue statin DVT Ppx: SQ heparin given DEMOND Code status: FULL PCP: Rajat Dispo: Admitted to ICU Patient seen in collaboration with Dr. Cisneros. Please see addendum. I spent a total of 85 minutes coordinating, documenting, and providing care for this patient excluding time spent in the performance of separately billed services. History of Present Illness Chief Complaint: N/V, DKA Primary Care Provider: Antonino Earl MD This is a 52yo M with a PMH of DM II, hypothyroidism, HTN and other medical problems listed below who presents with nausea, vomiting and syncopal episodes at home over the past 3 days. Started to vomit Thursday evening and continued to feel ill into Thursday when he felt lightheaded and had a syncopal episode after urinating and fell, landing on his face and left shoulder. Later that day he fell against the dresser. Went to [facility] ER for evaluation which was felt to be vasovagal in setting of dehydration. Lab work at [facility] showing hyperglycemia and anion gap of 25 at that time. Received antiemetics and fluids and was discharged home. Nausea and vomiting recurred yesterday and could not keep anything down despite taking Zofran. Denies any fever, chills, abdominal pain or diarrhea. Chest wall painful from multiple bouts of emesis. No headache, urinary issues, melena or hematochezia. Had a normal bowel movement 3 days ago. No recent known illness. Last took insulin and Ozempic this past Thursday. Allergies Allergy/AdvReac Type Severity Reaction Status Date / Time bee venom protein (honey bee) Allergy Unknown Bee sting Verified 01/09/23 10:36 allergy Home Medications Medication Instructions Recorded Confirmed Type aspirin 81 mg capsule 81 mg PO DAILY 01/09/23 01/09/23 History atenolol 50 mg tablet 50 mg PO DAILY 01/09/23 01/09/23 History bismuth [id number]-[id number]-KoWy-resor 1 supp AR BID 01/09/23 01/09/23 History rectal suppository empagliflozin 25 mg tablet 25 mg PO DAILY 01/09/23 01/09/23 History (Jardiance) insulin glargine 100 unit/mL (3 32 unit subcut QAM 01/09/23 01/09/23 History mL) subcutaneous pen (Lantus Solostar U-100 Insulin) levothyroxine 125 mcg tablet 125 mcg PO DAILY 01/09/23 01/09/23 History losartan 50 mg tablet 50 mg PO DAILY 01/09/23 01/09/23 History metformin 1,000 mg tablet 1,000 mg PO BID 01/09/23 01/09/23 History ondansetron HCl 4 mg tablet 4 mg PO Q6H PRN Nausea 01/09/23 01/09/23 History semaglutide 2 mg/dose (8 mg/3 mL) 2 mg subcut WK 01/09/23 01/09/23 History subcutaneous pen injector (Ozempic) simvastatin 40 mg tablet 40 mg PO HS 01/09/23 01/09/23 History Past Med/Surg History Medical History (Updated 01/09/23 @ 12:36 by Joy Hughes PA-C) DM II (diabetes mellitus, type II), controlled HLD (hyperlipidemia) HTN (hypertension) Hypothyroidism Surgical History History of tonsillectomy Family History Other Alzheimer disease Dementia Hypertension Social History Smoking Status: Never smoker Hx Alcohol Use: Yes Alcohol Intake Frequency: 2-4 x/Month Feels Safe at Home: Yes Review of Systems Review of Systems: At least ten systems reviewed and negative except as noted in the HPI. Physical Exam Physical Exam: Please see Dr. Cisneros's addendum for physical exam. Results & Data Results & Data Vital Signs (Past 12 Hours) Vital Signs Temp Pulse Pulse Resp BP BP Pulse Ox 01/09/23 10:15 121 H 18 136/76 100 01/09/23 09:11 36.2 C L 121 H 30 H 127/83 100 01/09/23 09:38 115 H 01/09/23 09:40 100 O2 Del Method 01/09/23 10:15 Room Air 01/09/23 09:11 Room Air 01/09/23 09:38 01/09/23 09:40 Room Air Laboratory Results Short CBC 01/09/23 Range/Units 09:45 WBC 17.47 H (4.8-10.8) K/ul Hgb 16.3 (14.0-18.0) g/dl Hct 52.4 H (42.0-52.0) % Plt Count 379 (130-400) K/uL BMP 01/09/23 10:00 Sodium 137 Potassium 6.1 H* Chloride 103 Carbon Dioxide 3 L* BUN 39 H Creatinine 1.45 H Glucose 431 H* Calcium 8.9 Liver Function 01/09/23 Range/Units 10:00 Total Bilirubin 0.6 (0.2-1.0) mg/dl AST 17 (13-39) U/L ALT 16 (7-52) U/L Alkaline Phosphatase 60 (34-104) U/L Albumin 4.5 (3.4-5.0) gm/dl Diagnostic Findings Chest X-Ray 01/09/23 09:26 XR chest 1V portable CLINICAL HISTORY: Weakness. COMPARISON STUDY: No previous studies for comparison. FINDINGS: Lung volumes are normal. There is no consolidation to suggest pneumonia. There is a possible 1.1 cm right lower lung nodule. There is no pneumothorax or pleural effusion. Cardiac size is normal. Mediastinal contours are normal. There is no evidence for pulmonary edema. IMPRESSION: 1. No acute cardiopulmonary findings. 2. Possible 1.1 cm right lower lung nodule. Nonemergent chest CT is recommended. ACT 112: Positive. There are findings on this exam that require communication between the performing entity and the patient following Patient Test Result Information Act ([place] Act 112) guidelines. Electronically signed by: Ariel Carrington M.D. 01/09/2023 10:[address] 01/09/23 09:[address] DOSE: 537.48 mGy.cm HISTORY: fall, n/v TECHNIQUE: Multiaxial CT images of the head were performed without the use of intravenous contrast. Automated exposure control was utilized for this study. A dose lowering technique was utilized adhering to the principles of ALARA. Comparison: None. Findings: The paranasal sinuses and mastoid air cells are clear. The calvarium and skull base are intact. The ventricles and sulci are within normal limits. There is no mass, hematoma, midline shift, or acute infarct. Small metallic screw/implant within the left posterior frontal bone. Impression: No acute intracranial abnormality. ACT 112: Negative or not required by law. Electronically signed by: Johnny Powell M.D. 01/09/2023 10:44 AM Supervising Physician Co-Signing Physician Notes Date of Service: January 09, 2023 History and physical exam performed by ca. History notable for 52-year-old man with hypertension and diabetes on insulin at home who presents with intractable nausea and vomiting for the past 4 days and confusion Reported that started having nausea and vomiting 4 days ago associated with 2 syncopal episode, 1 in the bathroom and 1 in the bedroom. Morning bathroom occurred while trying to urinate he had hit his head. Was evaluated at [facility] for that and noted to have syncopal episode thought to be vasovagal from his intractable nausea and vomiting. Was able to be hydrated and discharged on antiemetics. Patient reports vomiting resumed again yesterday. Reported this multiple episodes of nonbloody nonbilious vomiting. Denied abdominal pain, diarrhea, cough, fevers or chills. Reports only sore throat associated with the vomiting No known sick contacts. Reports that he had not taken his insulin for the past 4 days since he has not been able to keep anything down. On exam, General: Ill appearing, bruise on face Eyes: PERRL, conjunctivae normal, not pale, anicteric sclerae, EOM intact bilaterally ENMT: External ear and nose normal, dry oral mucosa Respiratory: Tachypnea, lungs clear to auscultation, no crackles and no wheezes Cardiovascular: Tachycardic, normal rhythm S1 S2 Gastrointestinal (Abdomen): Abdomen is not distended, soft, non-tender to palpation, no guarding, no palpable hepatosplenomegaly, normal bowel sounds Musculoskeletal: No pedal edema Genitourinary: No CVA tenderness Neurologic: Alert and oriented x 3, No focal weakness, sensation grossly intact Labs notable for WBC of 17,000, venous pH of less than 7, venous PCO2 of 18, potassium of 6.1, bicarb of 3, anion gap of 31, BUN of 39, creatinine of 1.45, blood glucose of 431, lactate of 4 CT head did not show any acute abnormalities Chest x-ray did not show any acute abnormalities. Diabetic ketoacidosis Lactic acidosis Acute kidney injury. Intractable nausea and vomiting. DKA likely in the setting of intractable nausea, vomiting and has been off insulin for some days. Continue insulin drip started in the ER Continue IV fluids per DKA protocol Repeat ABG noted pH of less than 7 Keep n.p.o. Admit to ICU. ICU physician notified. We will check BMP and VBG every 4 hours for now Patient meets criteria for SIRS, hence sepsis is possible Though no obvious source at this time based on history, SIRS could also be due to DKA and dehydration in this case. Got 3L IVF bolus Will give one dose of broad spectrum antibiotics, monitor and follow up outstanding infectious workup (blood cultures. UA/cx) Lactate improving with fluids Other plans as detailed by Joy Hughes PA-C (1) DKA, type 2 Diabetes mellitus complication detail: without coma Qualified Code(s): E11.10 - Type 2 diabetes mellitus with ketoacidosis without coma
[2023-01-09 11:13] LABS: T4 Free Thyroxine 1.14 ng/dl (0.61-1.60)
[2023-01-09 11:18] LABS: Albumin Globulin Ratio 1.6 (0.9-2); Albumin Level 4.5 gm/dl (3.4-5.0); BUN Creatinine Ratio 26.9 (10-20); Bilirubin,Total 0.6 mg/dl (0.2-1.0); Calcium 8.9 mg/dl (8.6-10.3); Creatinine Clr Calc Pharmacy 58.2 ml/min; Est GFR (African American) 62.8 ml/min; Est GFR (Non-African American) 54.2 ml/min; Globulin 2.8 gm/dl (2.5-4.0); Magnesium 2.8 mg/dl (1.7-2.4); Potassium 6.1 mmol/L (3.5-5.1); Total Protein 7.3 gm/dl (6.0-8.3); Troponin I High Sensitivity 13.4 pg/ml (0-20)
[2023-01-09] MEDS ORDERED: cefTRIAXone SODIUM 1,000 MG in DEXTROSE 5% AD-VAN 50 ML IV STA (11:44)
[2023-01-09] MEDS ORDERED: VANCOMYCIN HCL 1,500 MG in SODIUM CHLORIDE 0.9% 500 ML IV ONE (12:00)
[2023-01-09] MEDS ORDERED: STAT IV Infusion **Titration per Protocol STA (12:11)
[2023-01-09] MEDS ORDERED: PLASMA-LYTE A 1,000 ML IV SCH (12:15)
[2023-01-09] MEDS: INSULIN ASPART PER UNIT CHARGE SC SCH ×3 (12:17→21:08)
--- NOTE | 2023-01-09 12:22 | Communication Note ---
Date of Service: January 09, 2023 History and physical exam performed by me. History notable for 52-year-old man with hypertension and diabetes on insulin at home who presents with intractable nausea and vomiting for the past 4 days and confusion Reported that started having nausea and vomiting 4 days ago associated with 2 syncopal episode, 1 in the bathroom and 1 in the bedroom. Morning bathroom occurred while trying to urinate he had hit his head. Was evaluated at [facility] for that and noted to have syncopal episode thought to be vasovagal from his intractable nausea and vomiting. Was able to be hydrated and discharged on antiemetics. Patient reports vomiting resumed again yesterday. Reported this multiple episodes of nonbloody nonbilious vomiting. Denied abdominal pain, diarrhea, cough, fevers or chills. Reports only sore throat associated with the vomiting No known sick contacts. Reports that he had not taken his insulin for the past 4 days since he has not been able to keep anything down. On exam, General: Ill appearing, bruise on face Eyes: PERRL, conjunctivae normal, not pale, anicteric sclerae, EOM intact bilaterally ENMT: External ear and nose normal, dry oral mucosa Respiratory: Tachypnea, lungs clear to auscultation, no crackles and no wheezes Cardiovascular: Tachycardic, normal rhythm S1 S2 Gastrointestinal (Abdomen): Abdomen is not distended, soft, non-tender to palpation, no guarding, no palpable hepatosplenomegaly, normal bowel sounds Musculoskeletal: No pedal edema Genitourinary: No CVA tenderness Neurologic: Alert and oriented x 3, No focal weakness, sensation grossly intact Labs notable for WBC of 17,000, venous pH of less than 7, venous PCO2 of 18, potassium of 6.1, bicarb of 3, anion gap of 31, BUN of 39, creatinine of 1.45, blood glucose of 431, lactate of 4 CT head did not show any acute abnormalities Chest x-ray did not show any acute abnormalities. Diabetic ketoacidosis Lactic acidosis Acute kidney injury. Intractable nausea and vomiting. DKA likely in the setting of intractable nausea, vomiting and has been off insulin for some days. Continue insulin drip started in the ER Continue IV fluids per DKA protocol Repeat ABG noted pH of less than 7 Keep n.p.o. Admit to ICU. ICU physician notified. We will check BMP and VBG every 4 hours for now Patient meets criteria for SIRS, hence sepsis is possible Though no obvious source at this time based on history, SIRS could also be due to DKA and dehydration in this case. Got 3L IVF bolus Will give one dose of broad spectrum antibiotics, monitor and follow up outstanding infectious workup (blood cultures. UA/cx) Lactate improving with fluids Other plans as detailed by Joy Hughes PA-C
[2023-01-09 12:31] LABS: Appearance Urine Clear (Clear); Bacteria Urine Automated Negative (Negative); Bilirubin Urine Negative (Negative); Blood Urine 1+ (Negative); Color Urine Yellow; Glucose Urine UA 3+ (Negative); Ketones Urine 4+ (Negative); Leukocyte Esterase Urine Negative (Negative); Nitrite Urine Negative (Negative); Protein Urine 1+ (Negative); RBC Urine Automated 0-4 /hpf (0-4); Specific Gravity Urine 1.022 (1.000-1.030); Urobilinogen Urine Negative (Negative)
[2023-01-09 12:52] LABS: Estimated Average Glucose 180 mg/dl; Hemoglobin A1C 7.9 % (4.5-5.6)
[2023-01-09] MEDS ORDERED: PHARMACY GLYCEMIC MGMT CONSULT PRN (13:23)
--- NOTE | 2023-01-09 13:27 | Critical Care Consultation ---
Date of Consultation January 09, 2023 Assessment & Plan (1) SIRS (systemic inflammatory response syndrome): (2) HTN (hypertension): (3) Metabolic acidosis: (4) HLD (hyperlipidemia): (5) Hypothyroidism: (6) Intractable nausea and vomiting: (7) DKA, type 2: (8) DM II (diabetes mellitus, type II), controlled: (9) Dehydration: Plan Reason Critically Ill: 52-year-old male here with a history significant for HTN, HLD, DMII, Hypothyroidism who presented with weakness, confusion and who was admitted for DKA. Neuro - Metabolic Encephalopathy CAM ICU: Negative * Alert and oriented at present * Confusion at time of arrival- likely related to DKA * CT head on admission without acute abnormalities Cardiac - HTN, HLD, Tachycardia * EKG- sinus tachycardia * Tachycardia likely 2/2 to volume depletion from DKA. Will monitor response to rehydration. Respiratory - * No acute respiratory distress * O2 sat 100% on room air GI - Nausea/Vomiting * Likely due to DKA state, patient denies any current nausea or abdominal pain * Diet: Non caloric clears * Protonix 40 daily Renal/Lytes - Metabolic Acidosis * Potassium 6.1, Sodium 137, Magnesium 2.8, Creatinine 1.45 * Monitor electrolytes with q4h BMPs and replete as needed, anticipate replacing potassium when <4.5 * Anion gap of 31 * pH: <7, pCO2: 18, pO2: 47, HCO3: 3 * Continue IV fluids, currently receiving 2L NSS bolus. Switch to 1/2 NSS when sodium reaches ~140 - * Urine positive for ketones, protein, blood * Urine cx pending Endo - DKA, Diabetes Mellitus Type 2, Hypothyroidism * Pharmacy glycemic consult, on insulin drip -Continue insulin drip until anion gap is closed * Continue Levothyroxine Heme - * Stable H&H, hemoglobin of 16.3 today ID - * Tachycardia, elevated white count and lactate- although likely 2/2 to DKA * Received antibiotic coverage in the ED, no current concern of active infection * Urine, blood cultures pending Lines/IV Access - * PIVs intact. DVT Prophylaxis - * Heparin subQ q8h Thank you for allowing us to be part of this patient's care. Please refer to Dr. Aguillon's documentation for any further recommendations. Supervising Physician Co-Signing Physician Notes Patient seen and examined. EMR reviewed. Discussed with critical care nurse and family practice resident. Agree with assessment plan as noted. Patient peers to have DKA due to inadequate use of insulin at home. Unclear if viral gastroenteritis precipitated the event. Continue insulin drip until gap closes and the patient is able to tolerate p.o. Suspect that he still remains under resuscitated from a volume standpoint so we will give an additional 2 L of crystalloid and follow his heart rate and urine output. Aggressive electrolyte replacement protocols will be initiated. Continue every 4 hour BMP levels. Once glucose drops below 200, will place dextrose and IV fluids to allow for continuation of insulin drip pending closure of the anion gap No indication for bicarb currently as it may paradoxically worsen intracellular acidosis. We will continue to follow as the patient's metabolic disarray improves. Feel free to contact us with questions. The patient is critically ill with multiple metabolic derangements with significant possibility of clinical deterioration. A total of 40 minutes was spent in critical care time and management stabilization of this patient History of Present Illness History of Present Illness Fidencio Madison is a 52 year old male with past medical history of HTN, Hypothyroidism, HLD, and Diabetes Mellitus Type 2 who presented to the ED for weakness and confusion. He notes that he has had intractable nausea and vomiting ongoing for the past few days. He recalls several episodes of syncope at home, also notes that he has not taken his insulin for the past 4 days due to minimal PO intake. States that he went to a different hospital a few days ago after one of the falls and imaging was completed and he was discharged. He denies any current pain, nausea, or abdominal pain. Denies chest pain, shortness of breath, body aches/chills. Allergies Allergy/AdvReac Type Severity Reaction Status Date / Time bee venom protein (honey bee) Allergy Unknown Bee sting Verified 01/09/23 10:36 allergy Home Medications Medication Instructions Recorded Confirmed Type aspirin 81 mg capsule 81 mg PO DAILY 01/09/23 01/09/23 History atenolol 50 mg tablet 50 mg PO DAILY 01/09/23 01/09/23 History bismuth [id number]-[id number]-[id number]-resor 1 supp CO BID 01/09/23 01/09/23 History rectal suppository empagliflozin 25 mg tablet 25 mg PO DAILY 01/09/23 01/09/23 History (Jardiance) insulin glargine 100 unit/mL (3 32 unit subcut QAM 01/09/23 01/09/23 History mL) subcutaneous pen (Lantus Solostar U-100 Insulin) levothyroxine 125 mcg tablet 125 mcg PO DAILY 01/09/23 01/09/23 History losartan 50 mg tablet 50 mg PO DAILY 01/09/23 01/09/23 History metformin 1,000 mg tablet 1,000 mg PO BID 01/09/23 01/09/23 History ondansetron HCl 4 mg tablet 4 mg PO Q6H PRN Nausea 01/09/23 01/09/23 History semaglutide 2 mg/dose (8 mg/3 mL) 2 mg subcut WK 01/09/23 01/09/23 History subcutaneous pen injector (Ozempic) simvastatin 40 mg tablet 40 mg PO HS 01/09/23 01/09/23 History Patient History Medical History (Updated 01/09/23 @ 12:36 by Joy Hughes PA-C) DM II (diabetes mellitus, type II), controlled HLD (hyperlipidemia) HTN (hypertension) Hypothyroidism Surgical History History of tonsillectomy Family History Other Alzheimer disease Dementia Hypertension Social History Smoking Status: Never smoker Hx Alcohol Use: Yes Alcohol Intake Frequency: 2-4 x/Month Hx Substance Use: No Preferred Language: Sami Communication Ability: Effective Stock Counter Required: No Beliefs That Will Affect Care: None Current Living Situation: Spouse Other Information That Helps Us Care for You: No Feels Safe at Home: Yes Safety Concerns: Feels Safe At This Time Assistive Devices: None Review of Systems Review of Systems: As per HPI Physical Exam Constitutional: Alert and oriented, in no acute distress. Eyes: PERRL, conjunctivae normal, anicteric sclerae ENMT: external ear and nose normal, oropharynx normal Neck: trachea midline, no thyromegaly Respiratory: normal respiratory effort, lungs clear to auscultation Cardiovascular: Tachycardic rate, regular rhythm, no murmur, rubs, or gallop. No lower extremity edema. Gastrointestinal (Abdomen): normal bowel sounds, soft, nontender, no hepatosplenomegaly Musculoskeletal: Extremities: extremities normal to inspection Skin: Bruise and healing wound at center of forehead/nose. Neurologic: No focal neuro defects, able to follow commands and move all extremities. Psychiatric: A+Ox3, euthymic affect Results & Data Results & Data Vital Signs (Past 12 Hours) Vital Signs Temp Pulse Pulse Resp BP BP Pulse Ox 01/09/23 12:29 124 H 24 113/69 100 01/09/23 11:17 124 H 24 121/69 100 01/09/23 10:15 121 H 18 136/76 100 01/09/23 09:11 36.2 C L 121 H 30 H 127/83 100 01/09/23 09:38 115 H 01/09/23 09:40 100 O2 Del Method 01/09/23 12:29 Room Air 01/09/23 11:17 Room Air 01/09/23 10:15 Room Air 01/09/23 09:11 Room Air 01/09/23 09:38 01/09/23 09:40 Room Air Resident Activity Tracking Resident Involvement: Resident Care Provided Care Provided: Adult Hospital Medicine (7) DKA, type 2 Diabetes mellitus complication detail: without coma Qualified Code(s): E11.10 - Type 2 diabetes mellitus with ketoacidosis without coma
[2023-01-09] MEDS ORDERED: VANCOMYCIN CONSULT ACTIVE PRN (13:29)
[2023-01-09] MEDS ORDERED: SODIUM CHLORIDE 0.9% 1000ML 2,000 ML IV ONE (13:49)
[2023-01-09] MEDS: PENDING D5 1/2NS+20mEq KCL IVF SCH ×2 (13:58→14:44)
[2023-01-09] MEDS: PENDING 1/2NSS+20mEq KCL IVF SCH ×2 (13:58→14:44)
[2023-01-09] MEDS: SODIUM CHLORIDE 0.45 % 1,000 ML IV SCH ×2 (13:58→14:44)
[2023-01-09] MEDS: HEPARIN SOD 5,000 UNIT/0.5 ML VIAL SQ SCH ×2 (14:46→22:07)
[2023-01-09 14:51] LABS: BUN Creatinine Ratio 30.7 (10-20); Calcium 8.1 mg/dl (8.6-10.3); Creatinine Clr Calc Pharmacy 65.8 ml/min; Est GFR (African American) 73.7 ml/min; Est GFR (Non-African American) 63.6 ml/min; Magnesium 2.5 mg/dl (1.7-2.4); Phosphorus 1.6 mg/dl (2.5-4.9); Potassium 4.3 mmol/L (3.5-5.1)
--- NOTE | 2023-01-09 15:12 | Billing Data ---
Date of Service January 09, 2023 Coding Level of Care Code 86761 CRITICAL CARE
--- NOTE | 2023-01-09 15:17 | Pharmacy Report ---
Pharmacy Glycemic Short Note 2 - Date of Service January 09, 2023 - Glycemic Short BSG Results (Last 24 hours): 01/09/23 01/09/23 01/09/23 09:52 10:00 11:43 Glucose 431 H* POC Glucose 310 H* POC Glucose (other) 428 H* 01/09/23 01/09/23 01/09/23 12:48 13:31 14:10 Glucose 256 H POC Glucose 303 H* 234 H POC Glucose (other) 01/09/23 14:30 Glucose POC Glucose 242 H POC Glucose (other) OUTPATIENT ANTIDIABETIC REGIMEN: * Metformin 1000 mg PO BIDM * Jardiance 25 mg PO AM * Lantus 32 units SC AM * Ozempic 2 mg SC every Thursday * HbA1c: 7.9% (01/09/23) ASSESSMENT: * Fidencio is a 52 yo M admitted secondary to DKA this morning. Poor PO intake with nausea/vomiting and no med use in the last 4 days at home. * Initial labs: POC BSG 428 mg/dL, VBG < 7, SCr 1.45, K=6.1, AG 31, CO2 3. * Given 2 L of NS + 1 L of LR in the ED. Started on insulin drip at 7.1 units/hr without a bolus. * Most recent labs: POC BSG 242 mg/dL, VBG 7.04, SCr 1.27, K=4.3, AG=23, CO2 5. * Insulin drip still running at 7.1 units/hr. Fluids changed to D5 1/2NS + 20 KCl at 250 mL/hr. * No diet ordered. * Will give a dose of Lantus x 1 now with hopes of transitioning patient off insulin drip tomorrow morning. PLAN FOR INPATIENT GLYCEMIC CONTROL: * Hold outpatient oral diabetes medications * Insulin drip * Continue at 7.1 units/hr for now * Consider drip transition if: AG 12 or less, CO2 15 or more, VBG pH 7.30 or above, BSG 180 or less AND insulin drip rate at 2 units/hr or less * Basal insulin * Lantus 30 units SC x 1 now stat * Bolus insulin -per insulin drip calculator for now (parameters below are for when insulin drip is shut off) * NovoLog per scale ACHS or Q6hrs while NPO * Goal Range: Low 110 mg/dL - High 140 mg/dL * Correction Factor: 25 mg/dL/unit * Nutritional / Prandial insulin per carb ratio of 1 unit per 8 grams CHO consumed
[2023-01-09] MEDS ORDERED: LANTUS PER UNIT CHARGE SQ ONE (15:30)
[2023-01-09] MEDS: D5W AND 1/2NSS + 20MEQ KCL 20 MEQ/1,000 ML BAG IV SCH ×2 (16:27→20:22)
[2023-01-09] MEDS ORDERED: INSULIN ASPART PER UNIT CHARGE SC SCH (16:30)
[2023-01-09] MEDS ORDERED: ICU Protocol for HYPERglycemia SCH (16:30)
--- NOTE | 2023-01-09 16:44 | Electrocardiogram Report ---
Test Reason : Blood Pressure : / mmHG Vent. Rate : 116 BPM Atrial Rate : 119 BPM P-R Int : 114 ms QRS Dur : 106 ms QT Int : 356 ms P-R-T Axes : 071 036 071 degrees QTc Int : 494 ms Poor data quality, interpretation may be adversely affected Sinus tachycardia Otherwise normal ECG No previous ECGs available Confirmed by Dariel Comsb ([id number]) on 01/09/2023 4:44:25 PM Referred By: REFERRED SELF Confirmed By:Dariel Combs
[2023-01-09 18:40] LABS: Anion Gap 14 (3-11); BUN Creatinine Ratio 31.8 (10-20); Blood Urea Nitrogen 34 mg/dl (6-23); Calcium 8.2 mg/dl (8.6-10.3); Carbon Dioxide 9 mmol/L (21-32); Chloride 118 mmol/L (98-107); Creatinine Clr Calc Pharmacy 78.1 ml/min; Est GFR (African American) 90.7 ml/min; Est GFR (Non-African American) 78.3 ml/min; Glucose 168 mg/dl (70-99(Fasting)); Magnesium 2.2 mg/dl (1.7-2.4); Phosphorus < 1.0 mg/dl (2.5-4.9); Potassium 4.6 mmol/L (3.5-5.1); Sodium 141 mmol/L (136-145)
[2023-01-09] MEDS ORDERED: SODIUM PHOSPHATE 3 MMOL/1 ML INFUSION IV STA (18:41)
[2023-01-09] MEDS ORDERED: SODIUM PHOSPHATE 30 MMOL in SODIUM CHLORIDE 0.9% 500 ML IV ONE (19:15)
[2023-01-09 22:09] LABS: BUN Creatinine Ratio 29.9 (10-20); Calcium 7.9 mg/dl (8.6-10.3); Creatinine Clr Calc Pharmacy 86.2 ml/min; Est GFR (African American) 102.2 ml/min; Est GFR (Non-African American) 88.1 ml/min; Potassium 4.2 mmol/L (3.5-5.1)
[2023-01-09 22:13] LABS: Phosphorus 1.2 mg/dl (2.5-4.9)
[2023-01-10] MEDS: D5W AND 1/2NSS + 20MEQ KCL 20 MEQ/1,000 ML BAG IV SCH ×3 (00:24→07:56)
[2023-01-10 02:24] LABS: BUN Creatinine Ratio 24.1 (10-20); Calcium 7.3 mg/dl (8.6-10.3); Creatinine Clr Calc Pharmacy 96.1 ml/min; Est GFR (African American) 113.4 ml/min; Est GFR (Non-African American) 97.8 ml/min; Magnesium 1.8 mg/dl (1.7-2.4); Potassium 3.7 mmol/L (3.5-5.1)
[2023-01-10] MEDS ORDERED: POTASSIUM PHOS 3 MMOL/1 ML INFUSION IV STA (03:43)
[2023-01-10] MEDS ORDERED: MAGNESIUM SULFATE / D5W 1 GM/100 ML BAG IV ONE (03:45)
[2023-01-10] MEDS ORDERED: POTASSIUM PHOSPHATE 15 MMOL in SODIUM CHLORIDE 0.9% 250 ML IV ONE (04:00)
[2023-01-10] MEDS: LEVOTHYROXINE SODIUM 125 MCG TABLET PO SCH (05:38)
[2023-01-10] MEDS: HEPARIN SOD 5,000 UNIT/0.5 ML VIAL SQ SCH (05:38)
[2023-01-10 06:09] LABS: BUN Creatinine Ratio 23.7 (10-20); Calcium 7.8 mg/dl (8.6-10.3); Est GFR (African American) 119.9 ml/min; Est GFR (Non-African American) 103.4 ml/min; Magnesium 2.1 mg/dl (1.7-2.4); Phosphorus 2.3 mg/dl (2.5-4.9); Potassium 3.9 mmol/L (3.5-5.1)
--- NOTE | 2023-01-10 07:27 | Critical Care Progress Note ---
Date of Service January 10, 2023 Assessment & Plan (1) SIRS (systemic inflammatory response syndrome): (2) HTN (hypertension): (3) Metabolic acidosis: (4) HLD (hyperlipidemia): (5) Hypothyroidism: (6) Intractable nausea and vomiting: (7) DKA, type 2: (8) DM II (diabetes mellitus, type II), controlled: (9) Dehydration: Plan Reason Critically Ill: 52-year-old male here with a history significant for HTN, HLD, DMII, Hypothyroidism who presented with weakness, confusion and who was admitted for DKA. 24-hour events: Patient was admitted to the ICU. He received aggressive crystalloid resuscitation. Insulin and electrolytes were replaced. He is much better this morning. He is maintained hemodynamic stability. Recommendations: Neuro -no current issues. Cardiac -hypertension with persistent sinus tachycardia. Restart atenolol. On Cozaar. Follow clinically. Respiratory -no issues GI -nausea and vomiting resolved. Renal/Lytes -continue electrolyte replacement but can transition to oral replacement. Discontinue IV fluids at this point time. - * Urine positive for ketones, protein, blood * Urine cx pending Endo -anion gap closed. Transition to subcutaneous insulin. Consider restarting oral agents when clinically stable. Heme -no current issues ID -no current issues Lines/IV Access - * PIVs . DVT Prophylaxis - * Heparin subQ q8h Patient is stable at this point in time. He is okay to transfer to the floor. Will defer additional care to the hospital service. Critical care will sign off. Feel free to contact us if we can be of additional assistance. Admission and Anticipated Discharge Date Admission Date: January 09, 2023 Subjective Patient seen and examined. EMR reviewed. Discussed with critical care nurse. Patient feels much better this morning. His gap is closed. He is tolerating a diet. He received Lantus last evening. He is still on a low-dose of the insulin infusion. He is not experiencing any abdominal pain. No chest pain palpitations or shortness of breath. He overall feels significantly improved. Review of Systems Review of Systems: All systems reviewed & are unremarkable except as noted in Subjective Physical Exam Constitutional: WD/WN, vitals as above Neck: trachea midline, no thyromegaly Respiratory: normal respiratory effort, lungs clear to auscultation Cardiovascular: RRR, no murmur, no edema Gastrointestinal (Abdomen): normal bowel sounds, soft, nontender, no hepatosplenomegaly Musculoskeletal: Extremities: extremities normal to inspection Skin: no rashes, warm and dry Neurologic: Nonfocal exam Lymphatic: no cervical lymphadenopathy Results & Data Results & Data Vital Signs (Past 12 Hours) Vital Signs Temp Pulse Resp BP Pulse Ox O2 Del Method 01/10/23 05:00 104 H 18 100 01/10/23 05:00 119/70 01/10/23 04:00 100 H 0 L 99 01/10/23 04:00 133/74 01/10/23 03:00 100 H 19 100 01/10/23 03:00 138/74 01/10/23 02:00 111 H 16 98 01/10/23 02:00 129/74 01/10/23 01:00 117 H 18 98 01/10/23 01:00 116/65 01/10/23 00:00 113 H 19 98 01/10/23 00:00 95/59 L 01/10/23 03:30 37.2 C 01/10/23 00:00 111 H 01/09/23 23:05 112/64 01/09/23 23:05 109 H 23 100 01/09/23 23:00 110 H 16 99 01/09/23 22:00 115 H 19 100 01/09/23 22:00 123/73 01/09/23 21:00 110 H 16 100 01/09/23 21:00 139/81 01/09/23 23:39 36.9 C 01/09/23 20:40 Room Air 01/09/23 20:00 109 H 20 100 01/09/23 20:00 114/73 01/09/23 20:39 37.1 C Critical Care Results & Data Vital Signs (Past 12 Hours) Vital Signs Temp Pulse Resp BP Pulse Ox O2 Del Method 01/10/23 05:00 104 H 18 100 01/10/23 05:00 119/70 01/10/23 04:00 100 H 0 L 99 01/10/23 04:00 133/74 01/10/23 03:00 100 H 19 100 01/10/23 03:00 138/74 01/10/23 02:00 111 H 16 98 01/10/23 02:00 129/74 01/10/23 01:00 117 H 18 98 01/10/23 01:00 116/65 01/10/23 00:00 113 H 19 98 01/10/23 00:00 95/59 L 01/10/23 03:30 37.2 C 01/10/23 00:00 111 H 01/09/23 23:05 112/64 01/09/23 23:05 109 H 23 100 01/09/23 23:00 110 H 16 99 01/09/23 22:00 115 H 19 100 01/09/23 22:00 123/73 01/09/23 21:00 110 H 16 100 01/09/23 21:00 139/81 01/09/23 23:39 36.9 C 01/09/23 20:40 Room Air 01/09/23 20:00 109 H 20 100 01/09/23 20:00 114/73 01/09/23 20:39 37.1 C Lab & Micro Results (Past 24 Hours) RBC 5.94 M/uL (4.70-6.10) 01/09/23 WBC 17.47 K/ul (4.8-10.8) H 01/09/23 Hgb 16.3 g/dl (14.0-18.0) 01/09/23 Hct 52.4 % (42.0-52.0) H 01/09/23 MCV 88.2 fL (80.0-100.0) 01/09/23 MCH 27.4 pg (25.0-34.0) 01/09/23 MCHC 31.1 g/dL (32.0-36.0) L 01/09/23 RDW Standard Deviation 40.7 fL (36.4-46.3) 01/09/23 RDW Coefficient of Variation 12.5 % (11.5-14.5) 01/09/23 Plt Count 379 K/uL (130-400) 01/09/23 MPV 10.4 fL (9.4-12.4) 01/09/23 Neutrophils (%) (Auto) 88.4 % 01/09/23 Lymphocytes (%) (Auto) 3.5 % 01/09/23 Monocytes # (Auto) 1.20 K/uL (0.11-0.59) H 01/09/23 Eosinophils # (Auto) 0.00 K/uL (0-0.50) 01/09/23 Immature Granulocyte % (Auto) 0.9 % 01/09/23 Neutrophils # (Auto) 15.44 K/uL (1.40-6.50) H 01/09/23 Lymphocytes # (Auto) 0.61 K/uL (1.2-3.4) L 01/09/23 Monocytes # (Auto) 1.20 K/uL (0.11-0.59) H 01/09/23 Eosinophils # (Auto) 0.00 K/uL (0-0.50) 01/09/23 Basophils # (Auto) 0.06 K/uL (0-0.2) 01/09/23 Immature Granulocyte # (Auto) 0.16 K/uL (0.01-0.20) 3 Na 139 mmol/L (136-145) 01/10/23 K 3.9 mmol/L (3.5-5.1) 01/10/23 Cl 115 mmol/L (98-107) H 01/10/23 CO2 18 mmol/L (21-32) L 01/10/23 Anion Gap 6 (3-11) 01/10/23 BUN 18 mg/dl (6-23) 01/10/23 Creatinine 0.76 mg/dl (0.6-1.4) 01/10/23 Estimated GFR ( Amer) 119.9 ml/min 01/10/23 Estimated GFR (Non-Af Amer) 103.4 ml/min 01/10/23 BUN/Creatinine Ratio 23.7 (10-20) H 01/10/23 Glu 156 mg/dl (70-99(Fasting)) H 01/10/23 Ca 7.8 mg/dl (8.6-10.3) L 01/10/23 Phosphorus Level 2.3 mg/dl (2.5-4.9) L 01/10/23 Total Bilirubin 0.6 mg/dl (0.2-1.0) 01/09/23 AST 17 U/L (13-39) 01/09/23 ALT 16 U/L (7-52) 01/09/23 Alkaline Phosphatase 60 U/L (34-104) 01/09/23 TP 7.3 gm/dl (6.0-8.3) 01/09/23 Albumin 4.5 gm/dl (3.4-5.0) 01/09/23 Globulin 2.8 gm/dl (2.5-4.0) 01/09/23 Albumin/Globulin Ratio 1.6 (0.9-2) 01/09/23 Mg 2.1 mg/dl (1.7-2.4) 01/10/23 05:35 Calcium Level 7.8 mg/dl (8.6-10.3) L 01/10/23 05:35 Venous Blood pH 7.29 (7.36-7.41) L 01/10/23 05:35 Venous Blood Partial Pressure CO2 18 mmHg (38-50) L 01/09/23 09 :59 Venous Blood Partial Pressure O2 47 mmHg 01/09/23 09:59 Venous Blood HCO3 3 mmol/L 01/09/23 09:59 Venous Blood Base Excess -28.5 mEq/L 01/09/23 09:59 Venous Blood Oxygen Saturation 76.8 % 01/09/23 09:59 Arterial Blood pH < 7.00 (7.35-7.45) L* 01/09/23 11:29 Diagnostic Findings (Past 24 Hours) Chest X-Ray 01/09/23 09:26 XR chest 1V portable CLINICAL HISTORY: Weakness. COMPARISON STUDY: No previous studies for comparison. FINDINGS: Lung volumes are normal. There is no consolidation to suggest pneumonia. There is a possible 1.1 cm right lower lung nodule. There is no pneumothorax or pleural effusion. Cardiac size is normal. Mediastinal contours are normal. There is no evidence for pulmonary edema. IMPRESSION: 1. No acute cardiopulmonary findings. 2. Possible 1.1 cm right lower lung nodule. Nonemergent chest CT is recommended. ACT 112: Positive. There are findings on this exam that require communication between the performing entity and the patient following Patient Test Result Information Act ([place] Act 112) guidelines. Electronically signed by: Ariel Carrington M.D. 01/09/2023 10:[address] 01/09/23 09:[address] DOSE: 537.48 mGy.cm HISTORY: fall, n/v TECHNIQUE: Multiaxial CT images of the head were performed without the use of intravenous contrast. Automated exposure control was utilized for this study. A dose lowering technique was utilized adhering to the principles of ALARA. Comparison: None. Findings: The paranasal sinuses and mastoid air cells are clear. The calvarium and skull base are intact. The ventricles and sulci are within normal limits. There is no mass, hematoma, midline shift, or acute infarct. Small metallic screw/implant within the left posterior frontal bone. Impression: No acute intracranial abnormality. ACT 112: Negative or not required by law. Electronically signed by: Johnny Powell M.D. 01/09/2023 10:44 AM I & O Totals 24 Hours 01/09/23 01/10/23 01/11/23 06:59 06:59 06:59 Intake Total 20772.667 / 03001.667 Output Total 3250 / 3250 Balance 6977.667 / 6977.667 Cumulative 01/09/23 09:08 thru 01/10/23 06:56 Intake Total 39603.667 Output Total 3250 Balance 6977.667 RT Ventilator Mngmt (Last Documented) Ventilator Ordered Settings Respiratory Rate 18 01/10/23 05:00 Ventilator - PT Measurements Respiratory Rate 18 Coding Level of Care Code 22987 SUB INP/OBS CARE 2/35MIN Diagnoses SIRS (systemic inflammatory response syndrome) R65.10 HTN (hypertension) I10 Metabolic acidosis E87.20 HLD (hyperlipidemia) E78.5 Hypothyroidism E03.9 Intractable nausea and vomiting R11.2 DKA, type 2 E11.10 Diabetes mellitus complication detail: without coma DM II (diabetes mellitus, type II), controlled E11.9 Dehydration E86.0 (7) DKA, type 2 Diabetes mellitus complication detail: without coma Qualified Code(s): E11.10 - Type 2 diabetes mellitus with ketoacidosis without coma
[2023-01-10] MEDS: INSULIN ASPART PER UNIT CHARGE SC SCH ×5 (07:55→21:00)
[2023-01-10] MEDS ORDERED: LANTUS PER UNIT CHARGE SQ ONE ×2 (08:00→09:00)
[2023-01-10 08:05] LABS: Basophils # (auto) 0.02 K/uL (0-0.2); Basophils % (auto) 0.1 %; Hemoglobin 12.8 g/dl (14.0-18.0); Immature Granulocytes # (auto) 0.09 K/uL (0.01-0.20); Immature Granulocytes % (auto) 0.6 %; Lymphocytes # (auto) 0.85 K/uL (1.2-3.4); Lymphocytes % (auto) 5.8 %; Mean Corpuscular Hemoglobin 27.6 pg (25.0-34.0); Mean Corpuscular Hgb Conc 33.7 g/dL (32.0-36.0); Mean Corpuscular Volume 81.9 fL (80.0-100.0); Mean Platelet Volume 9.5 fL (9.4-12.4); Monocytes # (auto) 1.13 K/uL (0.11-0.59); Monocytes % (auto) 7.7 %; Neutrophils # (auto) 12.55 K/uL (1.40-6.50); Neutrophils % (auto) 85.8 %; Platelet Count 219 K/uL (130-400); RDW Coefficient of Variation 13.2 % (11.5-14.5); RDW Standard Deviation 38.9 fL (36.4-46.3); Red Blood Count 4.64 M/uL (4.70-6.10); White Blood Count 14.64 K/ul (4.8-10.8)
[2023-01-10] MEDS: ASPIRIN 81 MG ECTAB PO SCH (08:46)
[2023-01-10] MEDS: LOSARTAN POTASSIUM 50 MG TAB PO SCH (08:46)
[2023-01-10] MEDS: ATENOLOL 50 MG TABLET PO SCH (08:46)
--- NOTE | 2023-01-10 10:31 | Hospitalist Progress Note ---
Date of Service January 10, 2023 Assessment & Plan (1) DKA, type 2: (2) Metabolic acidosis: (3) Intractable nausea and vomiting: (4) SIRS (systemic inflammatory response syndrome): (5) HTN (hypertension): (6) Hypothyroidism: (7) HLD (hyperlipidemia): Plan This is a 52yo M with a PMH of DM II, hypothyroidism, HTN and other medical problems listed below who presents with nausea, vomiting and syncopal episodes at home over the past 3 days and was found to have DKA and metabolic acidosis. DKA-resolved. DM 2 on Ozempic and Lantus at bedtime, for about 8 years now N/V x 3 days, has not taken insulin since Thursday since feeling poorly. Educated on importance of continuing insulin (at reduced amt, call PCP) even when PO intake is decreased On admission, ABG pH <7.00, bicarb 3 on BMP, anion gap 31, glucose 431 Received 3 L fluid bolus in ED, transitioning to 1/2 NSS @ 250 ml/hr given that initial sodium corrects to 142 Managed in ICU on admission, DKA resolved and now stable for transfer to floor. 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 Likely reactive in setting of DKA. HR 120s, RR: 30, WBC 17, lactate 4 -> 2.8 improving with fluids, procal pending No clear infectious source, likely reactive in setting of DKA, repeat blood culture pending. WBC improved. Monitoring off of antibiotics for now. Start antibiotics if concern for infection or clinical status changes DEMOND-resolved, creatinine back to baseline 1.45->0.76. DEMOND was in setting of DKA, dehydration. Hypertension- Continue atenolol with hold parameters. BP stable Hypothyroidism- Continue levothyroxine. TSH abnormal likely in setting of acute illness, recheck as outpatient once recovers for Hypophosphatemia-improved, recheck in a.m. Hemoglobin drop- initial increased hemoglobin on admission is likely due to hemoconcentration and corrected after fluid resuscitation. No evidence of bleeding. Recheck in a.m. Syncopex2- ? Vasovagal. Patient does have history of vasovagal syncope and confirmed by tilt table test per patient 6 years back. Will continue monitor on telemetry. Consult cardiology if telemetry abnormal. PT evaluation. DVT Ppx: Subcu Lovenox Code status: FULL Dispo: Transfer to [facility] with telemetry Admission and Anticipated Discharge Date Admission Date: January 09, 2023 Subjective Patient was seen and examined at bedside. He feels much better. Able to tolerate some food without any nausea vomiting or pain. Voiding without issues. No bowel meant since Thursday. States he had 2 falls few days back and was in [facility] for evaluation. States he has history of vasovagal syncope confirmed with tilt table test about 6 years back with cardiology but has been good since then until few days back. He been feeling sick since Thursday with nausea and vomiting and did not take his insulin because of fear of hypoglycemia causing his DKA. Denies fevers chills or diarrhea. Denies any sick contacts Review of Systems Review of Systems: All systems reviewed & are unremarkable except as noted in Subjective Physical Exam Physical Exam: General: Lying comfortably in bed, not in distress, on room air HEENT: EOMI, BRADLY, MMM, small scabbed wounds x2 from recent fall Chest: Clear breath sounds bilaterally, no wheezes or crackles CVS: Regular rate and rhythm, normal heart sounds, no murmur Abdomen: Soft, non tender, not distended, normal bowel sounds Neuro: Awake, alert, oriented, conversing well, non focal Extremities: No cyanosis, clubbing or edema Results & Data Results & Data Vital Signs (Past 12 Hours) Vital Signs Temp Pulse Pulse Resp BP BP Pulse Ox 01/10/23 07:30 36.9 C 100 H 19 123/71 99 01/10/23 05:00 104 H 18 100 01/10/23 05:00 119/70 01/10/23 04:00 100 H 0 L 99 01/10/23 04:00 133/74 01/10/23 03:00 100 H 19 100 01/10/23 03:00 138/74 01/10/23 02:00 111 H 16 98 01/10/23 02:00 129/74 01/10/23 01:00 117 H 18 98 01/10/23 01:00 116/65 01/10/23 00:00 113 H 19 98 01/10/23 00:00 95/59 L 01/10/23 03:30 37.2 C 01/10/23 00:00 111 H 01/09/23 23:05 112/64 01/09/23 23:05 109 H 23 100 01/09/23 23:00 110 H 16 99 01/09/23 23:39 36.9 C O2 Del Method 01/10/23 07:30 Room Air 01/10/23 05:00 01/10/23 05:00 01/10/23 04:00 01/10/23 04:00 01/10/23 03:00 01/10/23 03:00 01/10/23 02:00 01/10/23 02:00 01/10/23 01:00 01/10/23 01:00 01/10/23 00:00 01/10/23 00:00 01/10/23 03:30 01/10/23 00:00 01/09/23 23:05 01/09/23 23:05 01/09/23 23:00 01/09/23 23:39 Laboratory Results Short CBC 01/10/23 Range/Units 07:44 WBC 14.64 H (4.8-10.8) K/ul Hgb 12.8 L D (14.0-18.0) g/dl Hct 38.0 L (42.0-52.0) % Plt Count 219 (130-400) K/uL BMP 01/09/23 01/09/23 01/09/23 10:00 14:10 17:57 Sodium 137 141 141 Potassium 6.1 H* 4.3 D 4.6 Chloride 103 113 H 118 H Carbon Dioxide 3 L* 5 L* 9 L* BUN 39 H 39 H 34 H Creatinine 1.45 H 1.27 1.07 Glucose 431 H* 256 H 168 H Calcium 8.9 8.1 L 8.2 L 01/09/23 01/10/23 01/10/23 21:24 01:47 05:35 Sodium 140 138 139 Potassium 4.2 3.7 3.9 Chloride 116 H 115 H 115 H Carbon Dioxide 13 L 16 L 18 L BUN 29 H 21 18 Creatinine 0.97 0.87 0.76 Glucose 176 H 166 H 156 H Calcium 7.9 L 7.3 L 7.8 L Liver Function 01/09/23 Range/Units 10:00 Total Bilirubin 0.6 (0.2-1.0) mg/dl AST 17 (13-39) U/L ALT 16 (7-52) U/L Alkaline Phosphatase 60 (34-104) U/L Albumin 4.5 (3.4-5.0) gm/dl Urine 01/09/23 Range/Units 12:03 Urine Color Yellow Urine Appearance Clear (Clear) Urine pH 5.0 (4.5-7.5) Ur Specific [place] 1.022 (1.000-1.030) Urine Protein 1+ H (Negative) Urine Glucose (UA) 3+ H (Negative) Medications Administered Current Inpatient Medications Aspirin (Aspirin 81 Mg Ectab) 81 mg PO DAILY NIYA Stop: 02/09/23 08:59 Last Admin: 01/10/23 08:46 Dose: 81 mg Atenolol (Atenolol 50 Mg Tablet) 50 mg PO DAILY NIYA Stop: 02/09/23 08:59 Last Admin: 01/10/23 08:46 Dose: 50 mg Dextrose (Dextrose 50% 50 Ml Syringe) 25 - 50 ml IV UD PRN; Protocol PRN Reason: Hypoglycemia Protocol Stop: 02/08/23 10:04 Glucagon (Glucagon For Inj 1 Mg Vial) 1 mg SQ UD PRN; Protocol PRN Reason: Hypoglycemia Protocol Stop: 02/08/23 10:04 Glucose (Glucose 10 Tab/Tube) 4 - 8 tab PO UD PRN; Protocol PRN Reason: Hypoglycemia Treatment Stop: 02/08/23 10:04 Glucose (Glucose 40% Gel 15 Gm Tube) 15 - 30 gm PO UD PRN; Protocol PRN Reason: Hypoglycemia Protocol Stop: 02/08/23 10:04 Heparin Sodium (Porcine) (Heparin Sod 5,000 Unit/0.5 Ml Vial) 5,000 units SQ Q8 NIYA Stop: 02/08/23 13:59 Last Admin: 01/10/23 05:38 Dose: 5,000 units Insulin Aspart (Insulin Aspart Per Unit Charge) 0 units SC ACHS NIYA Stop: 02/09/23 07:59 Last Admin: 01/10/23 07:55 Dose: Not Given Levothyroxine Sodium (Levothyroxine Sodium 125 Mcg Tablet) 125 mcg PO DAILYBB NIYA Stop: 02/09/23 06:29 Last Admin: 01/10/23 05:38 Dose: 125 mcg Losartan Potassium (Losartan Potassium 50 Mg Tab) 50 mg PO DAILY NIYA Stop: 02/09/23 08:59 Last Admin: 01/10/23 08:46 Dose: 50 mg Miscellaneous (Carbohydrates For Hypoglycemia ) 15 - 30 gm PO UD PRN PRN Reason: Hypoglycemia Protocol Stop: 02/08/23 10:04 Miscellaneous Information (Pharmacy Glycemic Mgmt Consult) 1 each N/A UD PRN PRN Reason: Consult Stop: 02/08/23 13:22 Simvastatin (Simvastatin 40 Mg Tab) 40 mg PO [facility] Stop: 02/09/23 20:59 (1) DKA, type 2 Diabetes mellitus complication detail: without coma Qualified Code(s): E11.10 - Type 2 diabetes mellitus with ketoacidosis without coma
--- NOTE | 2023-01-10 14:03 | Pharmacy Report ---
Pharmacy Glycemic Short Note 2 - Date of Service January 10, 2023 - Glycemic Short BSG Results (Last 24 hours): 01/09/23 01/09/23 01/09/23 14:10 14:30 15:34 Glucose 256 H POC Glucose 242 H 177 H 01/09/23 01/09/23 01/09/23 16:30 17:57 19:24 Glucose 168 H POC Glucose 170 H 158 H 01/09/23 01/09/23 01/09/23 21:24 21:24 23:35 Glucose 176 H POC Glucose 157 H 136 H 01/10/23 01/10/23 01/10/23 00:27 01:22 01:47 Glucose 166 H POC Glucose 142 H 136 H 01/10/23 01/10/23 01/10/23 02:40 03:31 04:46 Glucose POC Glucose 146 H 145 H 131 H 01/10/23 01/10/23 01/10/23 05:35 05:38 06:34 Glucose 156 H POC Glucose 135 H 131 H 01/10/23 01/10/23 07:24 11:18 Glucose POC Glucose 123 H 88 OUTPATIENT ANTIDIABETIC REGIMEN: * Metformin 1000 mg PO BIDM * Jardiance 25 mg PO AM * Lantus 32 units SC AM * Ozempic 2 mg SC every Thursday * HbA1c: 7.9% (01/09/23) ASSESSMENT: 01/10/23 * Patient continued on insulin drip overnight - rates continued to drop with rate this AM of 1.5 units/hr. * Show Girl initated transition this morning with a stopping of dextrose fluids and insulin infusion. * Lantus 32 units (home dose) ordered for today with subsequent dosing based upon response. * BSGs after drip transition 123-88 mg/dL with no documented PO intake. BASELINE * Fidencio is a 52 yo M admitted secondary to DKA this morning. Poor PO intake with nausea/vomiting and no med use in the last 4 days at home. * Initial labs: POC BSG 428 mg/dL, VBG < 7, SCr 1.45, K=6.1, AG 31, CO2 3. * Given 2 L of NS + 1 L of LR in the ED. Started on insulin drip at 7.1 units/hr without a bolus. * Most recent labs: POC BSG 242 mg/dL, VBG 7.04, SCr 1.27, K=4.3, AG=23, CO2 5. * Insulin drip still running at 7.1 units/hr. Fluids changed to D5 1/2NS + 20 KCl at 250 mL/hr. * No diet ordered. * Will give a dose of Lantus x 1 now with hopes of transitioning patient off insulin drip tomorrow morning. PLAN FOR INPATIENT GLYCEMIC CONTROL: * Hold outpatient oral diabetes medications * Basal insulin * Lantus 32 units SC x 1 with additional doses depending upon response * Bolus insulin * NovoLog per scale ACHS or Q6hrs while NPO * Goal Range: Low 110 mg/dL - High 140 mg/dL * Correction Factor: 25 mg/dL/unit * Nutritional / Prandial insulin per carb ratio of 1 unit per 8 grams CHO consumed
[2023-01-10] MEDS ORDERED: ENOXAPARIN INJ 40 MG/0.4 ML SYR SQ SCH (21:00)
[2023-01-10] MEDS ORDERED: SIMVASTATIN 40 MG TAB PO SCH (21:00)
[2023-01-11] MEDS: LEVOTHYROXINE SODIUM 125 MCG TABLET PO SCH (05:42)
[2023-01-11 06:30] LABS: Hematocrit (blood only) 36.3 % (42.0-52.0); Hemoglobin 12.6 g/dl (14.0-18.0); Mean Corpuscular Hemoglobin 27.4 pg (25.0-34.0); Mean Corpuscular Hgb Conc 34.7 g/dL (32.0-36.0); Mean Corpuscular Volume 78.9 fL (80.0-100.0); Mean Platelet Volume 9.7 fL (9.4-12.4); Platelet Count 197 K/uL (130-400); RDW Standard Deviation 36.9 fL (36.4-46.3); White Blood Count 8.17 K/ul (4.8-10.8)
[2023-01-11] MEDS: ATENOLOL 50 MG TABLET PO SCH (07:36)
[2023-01-11] MEDS: ASPIRIN 81 MG ECTAB PO SCH (07:36)
[2023-01-11] MEDS: LOSARTAN POTASSIUM 50 MG TAB PO SCH (07:36)
[2023-01-11] MEDS: INSULIN ASPART PER UNIT CHARGE SC SCH ×2 (08:34→12:36)
[2023-01-11 09:13] LABS: BUN Creatinine Ratio 15.7 (10-20); Calcium 7.9 mg/dl (8.6-10.3); Creatinine Clr Calc Pharmacy 165.6 ml/min; Est GFR (African American) 141.2 ml/min; Est GFR (Non-African American) 121.9 ml/min; Phosphorus 1.5 mg/dl (2.5-4.9); Potassium 3.1 mmol/L (3.5-5.1)
[2023-01-11] MEDS ORDERED: POTASSIUM PHOS 3 MMOL/1 ML INFUSION IV STA (09:31)
[2023-01-11] MEDS ORDERED: POTASSIUM CHLORIDE CRTAB 20 MEQ TABCR PO ONE (09:33)
[2023-01-11] MEDS ORDERED: POTASSIUM PHOSPHATE 24 MMOL in DEXTROSE 5% 500 ML IV ONE (09:45)
[2023-01-11] MEDS ORDERED: LANTUS PER UNIT CHARGE SQ ONE (12:15)
--- NOTE | 2023-01-11 13:09 | Discharge Summary ---
Date of Service January 11, 2023 Admission HPI Per Admitting Provider This is a 52yo M with a PMH of DM II, hypothyroidism, HTN and other medical problems listed below who presents with nausea, vomiting and syncopal episodes at home over the past 3 days. Started to vomit Thursday evening and continued to feel ill into Thursday when he felt lightheaded and had a syncopal episode after urinating and fell, landing on his face and left shoulder. Later that day he fell against the dresser. Went to [facility] [place] [facility] for evaluation which was felt to be vasovagal in setting of dehydration. Lab work at [facility] [place] showing hyperglycemia and anion gap of 25 at that time. Received antiemetics and fluids and was discharged home. Nausea and vomiting recurred yesterday and could not keep anything down despite taking Zofran. Denies any fever, chills, abdominal pain or diarrhea. Chest wall painful from multiple bouts of emesis. No headache, urinary issues, melena or hematochezia. Had a normal bowel movement 3 days ago. No recent known illness. Last took insulin and Ozempic this past Thursday. Admission Exam Per Admitting Provider General: Ill appearing, bruise on face Eyes: PERRL, conjunctivae normal, not pale, anicteric sclerae, EOM intact bilaterally ENMT: External ear and nose normal, dry oral mucosa Respiratory: Tachypnea, lungs clear to auscultation, no crackles and no wheezes Cardiovascular: Tachycardic, normal rhythm S1 S2 Gastrointestinal (Abdomen): Abdomen is not distended, soft, non-tender to palpation, no guarding, no palpable hepatosplenomegaly, normal bowel sounds Musculoskeletal: No pedal edema Genitourinary: No CVA tenderness Neurologic: Alert and oriented x 3, No focal weakness, sensation grossly intact Principal Diagnosis DKA, DM-2 on insulin, SIRS, Vasovagal syncope Discharge Exam General: Sitting comfortably in bed, not in distress, on room air HEENT: EOMI, BRADLY, MMM, small scabbed wounds x2 from recent fall Chest: Clear breath sounds bilaterally, no wheezes or crackles CVS: Regular rate and rhythm, normal heart sounds, no murmur Abdomen: Soft, non tender, not distended, normal bowel sounds Neuro: Awake, alert, oriented, conversing well, non focal Extremities: No cyanosis, clubbing or edema Discharge Data Allergies Allergy/AdvReac Type Severity Reaction Status Date / Time bee venom protein (honey bee) Allergy Unknown Bee sting Verified 01/09/23 10:36 allergy Consultations 01/09/23 11:01 ED Decision to Admit Stat Ordered Studies 01/09/23 09:33 CT head/brain wo con Stat Laboratory Results WBC 8.17 K/ul (4.8-10.8) 01/11/23 05:53 RBC 4.60 M/uL (4.70-6.10) L 01/11/23 05:53 Hgb 12.6 g/dl (14.0-18.0) L 01/11/23 05:53 POC Hgb 17.7 g/dl (14.0-18.0) 01/09/23 09:52 Hct 36.3 % (42.0-52.0) L 01/11/23 05:53 POC Hct 52 % (42-52) 01/09/23 09:52 MCV 78.9 fL (80.0-100.0) L 01/11/23 05:53 MCH 27.4 pg (25.0-34.0) 01/11/23 05:53 MCHC 34.7 g/dL (32.0-36.0) 01/11/23 05:53 RDW Std Deviation 36.9 fL (36.4-46.3) 01/11/23 05:53 RDW Coeff of Tae 13.0 % (11.5-14.5) 01/11/23 05:53 Plt Count 197 K/uL (130-400) 01/11/23 05:53 MPV 9.7 fL (9.4-12.4) 01/11/23 05:53 Immature Gran % (Auto) 0.6 % 01/10/23 07:44 Neut % (Auto) 85.8 % 01/10/23 07:44 Lymph % (Auto) 5.8 % 01/10/23 07:44 [place] % (Auto) 7.7 % 01/10/23 07:44 Eos % (Auto) 0.0 % 01/10/23 07:44 Baso % (Auto) 0.1 % 01/10/23 07:44 Neut # (Auto) 12.55 K/uL (1.40-6.50) H 01/10/23 07:44 Lymph # (Auto) 0.85 K/uL (1.2-3.4) L 01/10/23 07:44 [place] # (Auto) 1.13 K/uL (0.11-0.59) H 01/10/23 07:44 Eos # (Auto) 0.00 K/uL (0-0.50) 01/10/23 07:44 Baso # (Auto) 0.02 K/uL (0-0.2) 01/10/23 07:44 Immature Gran # (Auto) 0.09 K/uL (0.01-0.20) 01/10/23 07:44 ABG pH < 7.00 (7.35-7.45) L* 01/09/23 11:29 VBG pH 7.29 (7.36-7.41) L 01/10/23 05:35 VBG pCO2 18 mmHg (38-50) L 01/09/23 09:59 VBG pO2 47 mmHg 01/09/23 09:59 VBG HCO3 3 mmol/L 01/09/23 09:59 VBG O2 Saturation 76.8 % 01/09/23 09:59 VBG Base Excess -28.5 mEq/L 01/09/23 09:59 POC Sodium 136 mmol/L (135-144) 01/09/23 09:52 Sodium 142 mmol/L (136-145) 01/11/23 05:55 POC Potassium 6.4 mmol/L (3.3-5.0) H* 01/09/23 09:52 Potassium 3.1 mmol/L (3.5-5.1) L D 01/11/23 05:55 POC Chloride 110 mmol/L (101-112) 01/09/23 09:52 Chloride 108 mmol/L (98-107) H 01/11/23 05:55 Carbon Dioxide 27 mmol/L (21-32) 01/11/23 05:55 POC Total CO2 6 mmol/L (24-31) L* 01/09/23 09:52 Anion Gap 7 (3-11) 01/11/23 05:55 POC Anion Gap 27.0 mmol/L (16-25) H 01/09/23 09:52 POC BUN 52 mg/dl (7-18) H 01/09/23 09:52 BUN 8 mg/dl (6-23) 01/11/23 05:55 Creatinine 0.51 mg/dl (0.6-1.4) L 01/11/23 05:55 POC Creatinine 1.1 mg/dl (0.6-1.3) 01/09/23 09:52 Est Cr Clr Drug Dosing 165.6 ml/min 01/11/23 05:55 Est GFR ( Amer) 141.2 ml/min 01/11/23 05:55 Est GFR (Non-Af Amer) 121.9 ml/min 01/11/23 05:55 BUN/Creatinine Ratio 15.7 (10-20) 01/11/23 05:55 Glucose 60 mg/dl (70-99(Fasting)) L 01/11/23 05:55 POC Glucose 187 mg/dl (70-99) H 01/11/23 11:45 POC Glucose (other) 428 mg/dl (70-99) H* 01/09/23 09:52 Estimat Average Glucose 180 mg/dl 01/09/23 09:45 Hemoglobin A1c 7.9 % (4.5-5.6) H 01/09/23 09:45 Lactate 2.8 mmol/L (0.4-2.0) H* 01/09/23 11:54 Calcium 7.9 mg/dl (8.6-10.3) L 01/11/23 05:55 POC Ioniz Calcium Ting 1.22 mmol/l (1.12-1.32) 01/09/23 09:52 Phosphorus 1.5 mg/dl (2.5-4.9) L* 01/11/23 05:55 Magnesium 2.0 mg/dl (1.7-2.4) 01/11/23 05:55 Total Bilirubin 0.6 mg/dl (0.2-1.0) 01/09/23 10:00 AST 17 U/L (13-39) 01/09/23 10:00 ALT 16 U/L (7-52) 01/09/23 10:00 Alkaline Phosphatase 60 U/L (34-104) 01/09/23 10:00 Troponin I High Sens 13.4 pg/ml (0-20) 01/09/23 10:00 Total Protein 7.3 gm/dl (6.0-8.3) 01/09/23 10:00 Albumin 4.5 gm/dl (3.4-5.0) 01/09/23 10:00 Globulin 2.8 gm/dl (2.5-4.0) 01/09/23 10:00 Albumin/Globulin Ratio 1.6 (0.9-2) 01/09/23 10:00 Procalcitonin 0.45 ng/ml (0-0.5) 01/09/23 11:54 TSH 0.157 uIu/ml (0.300-4.500) L 01/09/23 09:45 Free T4 1.14 ng/dl (0.61-1.60) 01/09/23 09:45 Urine Color Yellow 01/09/23 12:03 Urine Appearance Clear (Clear) 01/09/23 12:03 Urine pH 5.0 (4.5-7.5) 01/09/23 12:03 Ur Specific [place] 1.022 (1.000-1.030) 01/09/23 12:03 Urine Protein 1+ (Negative) H 01/09/23 12:03 Urine Glucose (UA) 3+ (Negative) H 01/09/23 12:03 Urine Ketones 4+ (Negative) H 01/09/23 12:03 Urine Blood 1+ (Negative) H 01/09/23 12:03 Urine Nitrite Negative (Negative) 01/09/23 12:03 Urine Bilirubin Negative (Negative) 01/09/23 12:03 Urine Urobilinogen Negative (Negative) 01/09/23 12:03 Ur Leukocyte Esterase Negative (Negative) 01/09/23 12:03 Urine WBC (Auto) 1-5 /hpf (0-5) 01/09/23 12:03 Urine RBC (Auto) 0-4 /hpf (0-4) 01/09/23 12:03 U Hyaline Cast (Auto) 1-5 /lpf (0-5) 01/09/23 12:03 U Epithel Cells (Auto) 5-10 /lpf (0-5) H 01/09/23 12:03 Urine Bacteria (Auto) Negative (Negative) 01/09/23 12:03 Nasal Screen MRSA (PCR) Negative (Negative) 01/09/23 14:30 SARS-CoV-2, RNA, NAAT NEGATIVE (NEGATIVE) 01/09/23 09:30 Impressions Chest X-Ray 01/09/23 09:26 XR chest 1V portable CLINICAL HISTORY: Weakness. COMPARISON STUDY: No previous studies for comparison. FINDINGS: Lung volumes are normal. There is no consolidation to suggest pneumonia. There is a possible 1.1 cm right lower lung nodule. There is no pneumothorax or pleural effusion. Cardiac size is normal. Mediastinal contours are normal. There is no evidence for pulmonary edema. IMPRESSION: 1. No acute cardiopulmonary findings. 2. Possible 1.1 cm right lower lung nodule. Nonemergent chest CT is recommended. ACT 112: Positive. There are findings on this exam that require communication between the performing entity and the patient following Patient Test Result Information Act ([place] Act 112) guidelines. Electronically signed by: Ariel Carrington M.D. 01/09/2023 10:[address] 01/09/23 09:[address] DOSE: 537.48 mGy.cm HISTORY: fall, n/v TECHNIQUE: Multiaxial CT images of the head were performed without the use of intravenous contrast. Automated exposure control was utilized for this study. A dose lowering technique was utilized adhering to the principles of ALARA. Comparison: None. Findings: The paranasal sinuses and mastoid air cells are clear. The calvarium and skull base are intact. The ventricles and sulci are within normal limits. There is no mass, hematoma, midline shift, or acute infarct. Small metallic screw/implant within the left posterior frontal bone. Impression: No acute intracranial abnormality. ACT 112: Negative or not required by law. Electronically signed by: Johnny Powell M.D. 01/09/2023 10:44 AM Hospital Course (1) DKA, type 2: (2) Metabolic acidosis: (3) Intractable nausea and vomiting: (4) SIRS (systemic inflammatory response syndrome): (5) HTN (hypertension): (6) Hypothyroidism: (7) HLD (hyperlipidemia): Plan This is a 52yo M with a PMH of DM II, hypothyroidism, HTN and other medical problems listed below who presents with nausea, vomiting and syncopal episodes at home over the past 3 days and was found to have DKA and metabolic acidosis. DKA-resolved. DM 2 on Ozempic and Lantus at bedtime, for about 8 years now. A1c 7.9 N/V x 3 days, has not taken insulin since Thursday since feeling poorly. Educated on importance of continuing insulin (at reduced amt, call PCP) even when PO intake is decreased On admission, ABG pH <7.00, bicarb 3 on BMP, anion gap 31, glucose 431 Received 3 L fluid bolus in ED, transitioning to 1/2 NSS @ 250 ml/hr given that initial sodium corrects to 142 Managed in ICU on admission, DKA resolved and transferred to floor yesterday and has remained stable. Reinforced importance of taking insulin regularly otherwise he might have recurrent DKA- follow up with PCP or diabetes doctor for the same- was also informed at bedside Home regimen is Ozempic weekly on Thursday and Lantus 32 units hs- continue SIRS- resolved. Likely reactive in setting of DKA. Clx negative. WBC norm alized. Clinically remained stable off of antibiotics. DEMOND-resolved, creatinine back to baseline 1.45->0.76. DEMOND was in setting of DKA, dehydration. Hypertension- Continue atenolol with hold parameters. BP stable Hypothyroidism- Continue levothyroxine. TSH abnormal likely in setting of acute illness, recheck as outpatient once recovers for Hypophosphatemia-repleted IV. Discharging on supplementation for 3 days. Hypokalemia- repleted. Hemoglobin drop- initial increased hemoglobin on admission is likely due to hemoconcentration and corrected after fluid resuscitation. No evidence of bleeding. Hb remained stable >12 which is likely his real Hb. Syncopex2- Likely Vasovagal. Patient does have history of vasovagal syncope and confirmed by tilt table test per patient 6 years back. Tele with sinus rhythm with PACs, otherwise unremarkable. PT cleared for discharge home. F/u with PCP/cardio as OP. N/V- may be gastroenteritis but resolved. Tolerating diet well without issues. Anxious and stable for discharge. Work excuse provided as per patient request. Pt will see his PCP in next few days. Patient and updated at bedside. Total Time Total Time Spent Total Time Spent (In Minutes): 45 Discharge Plan Discharge Items Patient Disposition: Home - Self-Care Reason For Visit: DKA, METABOLIC ACIDOSIS Discharge Diagnosis: DKA, T2DM on insulin, N/V, SIRS, HTN Activity: Resume your previous activity Non-emergency contact: Primary Care Provider Call non-emergency contact if: you have any medication questions Follow-up/Referrals: Antonino Earl MD [Primary Care Provider] - Diet: Carb Consistent or DM2 Addtl Attending Provider Instructions: Continue your home insulin. Please do not stop taking your insulin otherwise DKA might recur. Follow up with your diabetes doctors for further recommendations on insulin during sick days rather than stopping insulin completely Continue your home medications Follow up with your family doctor and diabetes doctors Pending Studies at Discharge: No Stand-Alone Forms: My [employer], Work/School Release, Smoking Cessation Medications and DC Order Prescriptions: New Phosphorous 250 mg tablet 1 tab PO TIDWMEAL Qty: 10 0RF Continued levothyroxine 125 mcg tablet 125 mcg PO DAILY atenolol 50 mg Tablet 50 mg PO DAILY Anusol Suppository 1 supp IA BID insulin glargine [Lantus Solostar U-100 Insulin] 100 unit/mL (3 mL) Insulin Pen 32 unit SUBCUT QAM Jardiance 25 mg Tablet 25 mg PO DAILY aspirin 81 mg Capsule 81 mg PO DAILY losartan 50 mg tablet 50 mg PO DAILY ondansetron HCl 4 mg tablet 4 mg PO Q6H PRN (Reason: Nausea) simvastatin 40 mg Tablet 40 mg PO HS metformin 1,000 mg Tablet 1,000 mg PO BID Ozempic 2 mg/dose (8 mg/3 mL) Pen Injector 2 mg SUBCUT WK Rx Instructions: on thursday Discharge Orders: Discharge Order (Routine); Ordered 01/11/23 Ordered By: Osvaldo Hernandez/Other Patient Handouts: High Blood Sugar (Hyperglycemia), Managing Type 2 Diabetes, Diabetic Ketoacidosis Admission Data Admit Date/Time: 01/09/23 12:11 Attending Provider: Osvaldo Perez Admit Provider: Socorro Cisneros I. Primary Care Provider: Antonino Earl Other Providers: Socorro Cisneros I.
== END 2023-01-11 15:52 | disposition home or self-care (01) | DRG 637 ==
LOC: ED 09:22 → SUATTDRO 12:11 → 1E 12:11 → 2N 01-10 08:25